=== PATIENT | female | born 1945 | race Caucasian/White ===

== ENCOUNTER → 2019-03-24 | Outpatient (CLI) | payer MEDICARE, OTHER ==
--- NOTE | 2019-03-25 11:17 | RADIOLOGY REPORT (SQ) ---
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 RADIONUCLIDE AND DOSE: 13 mCi mCi F18 FDG The route of agent administration: Intravenous FASTING BLOOD SUGAR: 105 mg/dl CONTRAST TYPE AND DOSE: No CT contrast given. TECHNIQUE: Blood glucose level was verified. Above dose of FDG was injected intravenously. 2-D seg mented attenuation correction images were obtained from the base of the skull to the midthighs. Nonc ontrast CT images were obtained for attenuation correction and fusion with emission images. CT image s were performed without oral or intravenous contrast and are not sensitive for parenchymal lesions. A series of overlapping emission PET images were obtained. Images reviewed and manipulated at [facility] work station by the radiologist. Images stored on PACS. LIMITATIONS: None. FINDINGS: HEAD AND NECK: No areas of abnormal metabolic activity in the soft tissues of the head and neck. CHEST: No areas of abnormal metabolic activity in the chest. ABDOMEN AND PELVIS: There is increased activity along the perineum, with SUV of 16. 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 No metabolically active adenopathy along the pelvis or inguinal regions. No retroperitoneal adenopat hy. PROXIMAL LOWER EXTREMITIES: No areas of abnormal metabolic activity in the soft tissues of the lower extremities. BONES: No abnormal metabolic activity in the visualized skeleton. ADDITIONAL CT FINDINGS: Air-fluid level right maxillary sinus from inflammatory change. Post hystere ctomy and oophorectomy, thyroidectomy, and right total hip replacement OTHER: No other significant findings. IMPRESSION: Increased activity along the perineum correlating with history of squamous cell carcinom a. No malignant adenopathy or PET-CT evidence of distant metastatic disease TECHNICAL DOCUMENTATION: JOB ID: [id number] [employer]- All Rights Reserved Reading location - IP/workstation name: [email or web address]
== END ==
LOC: RAD 17:16
PROVIDERS: ATTEND Radiology Radiation Oncology
DX: C21.1 Malignant neoplasm of anal canal (principal)
CPT/HCPCS: 78815; A9552

== ENCOUNTER 2019-03-26 07:06 | Day surgery (SDC) | payer MEDICARE, OTHER ==
[~2019-03-26 07:06] MED LIST: 1/2 NORMAL SALINE 1,000 ML IV PRN; CEFAZOLIN 1 GM/D5W RTU 1 GM/50 ML RTUPB IV PRN
[2019-03-26] MEDS ORDERED: CEFAZOLIN 1 GM/D5W RTU 1 GM/50 ML RTUPB IV ONE (07:08)
[2019-03-26 08:04] LABS: ABSOLUTE BASOPHILS # (AUTO) 0.1 10^3/uL (0.0-0.2); ABSOLUTE EOSINOPHILS # (AUTO) 0.3 10^3/uL (0.0-0.6); ABSOLUTE MONOCYTES (AUTO) 0.7 10^3/uL (0.1-1.4); ABSOLUTE NEUT (AUTO) 4.2 10^3/uL (1.7-8.2); BASOPHILS % (AUTO) 1.2 % (0-2); EOSINOPHILS % (AUTO) 3.4 % (0-6); HEMATOCRIT 42.1 % (36.0-47.0); HEMOGLOBIN 14.1 g/dL (12.0-15.5); LYMPHOCYTES % (AUTO) 27.6 % (13-45); MEAN CORPUSCULAR HGB CONC 33.6 g/dL (32.0-36.0); MEAN CORPUSCULAR VOLUME 89 fl (80-97); PLATELET COUNT 253 10^3/uL (150-450); RED BLOOD COUNT 4.71 10^6/uL (3.72-5.28); RED CELL DISTRIBUTION WIDTH 13.2 % (11.5-14.0); SEGMENTED NEUTROPHILS % (AUTO) 57.8 % (42-78); TOTAL CELLS COUNTED % (AUTO) 100 %; WHITE BLOOD COUNT 7.3 10^3/uL (4.0-10.5)
--- NOTE | 2019-03-26 08:15 | RADIOLOGY REPORT (SQ) ---
EXAM DESCRIPTION: CHEST SINGLE VIEW COMPLETED DATE/TIME: 03/26/2019 7:44 am REASON FOR STUDY: PRE OP COMPARISON: PET-CT 03/24/2019 EXAM PARAMETERS: NUMBER OF VIEWS: One view. TECHNIQUE: Single frontal radiographic view of the chest acquired. RADIATION DOSE: NA LIMITATIONS: None. FINDINGS: LUNGS AND PLEURA: No opacities, masses or pneumothorax. No pleural effusion. MEDIASTINUM AND HILAR STRUCTURES: No masses. Contour normal. HEART AND VASCULAR STRUCTURES: Heart normal in size. Normal vasculature. BONES: No acute findings. HARDWARE: None in the chest. OTHER: No other significant finding. IMPRESSION: NO ACUTE RADIOGRAPHIC FINDING IN THE CHEST. TECHNICAL DOCUMENTATION: JOB ID: [id number] [employer]- All Rights Reserved Reading location - IP/workstation name: [email or web address]
[2019-03-26 08:25] LABS: ANION GAP 13 (5-19); BLOOD UREA NITROGEN 23 mg/dL (7-20); CALCIUM 9.6 mg/dL (8.4-10.2); CARBON DIOXIDE 23 mmol/L (22-30); CHLORIDE 105 mmol/L (98-107); GLUCOSE 125 mg/dL (75-110); SODIUM 140.6 mmol/L (137-145)
[2019-03-26] MEDS ORDERED: FENTANYL CITRATE INJ/PF 100 MCG/2 ML AMPUL ONE (09:05)
[2019-03-26] MEDS ORDERED: MIDAZOLAM 2 MG/2 ML INJ ONE (09:05)
[2019-03-26] MEDS ORDERED: PROPOFOL INJ 200 MG/20 ML VIAL IV ONE (09:06)
[2019-03-26] MEDS ORDERED: ONDANSETRON HCL INJ/PF 4 MG/2 ML SDV ONE (09:06)
[2019-03-26] MEDS ORDERED: BACITRACIN INJ 50,000 UNIT VIAL ONE (09:08)
[2019-03-26] MEDS ORDERED: LIDOCAINE 0.5% INJ-PF (5 MG/ML) 50 ML SDV ONE (09:08)
[2019-03-26] MEDS ORDERED: BUPIVACAINE HCL 0.25 % INJ/PF (2.5 MG/1 ML) 30 ML VIAL ONE (09:08)
[2019-03-26] MEDS ORDERED: FENTANYL CITRATE INJ/PF 100 MCG/2 ML AMPUL IV PRN ×3 (09:42)
--- NOTE | 2019-03-26 10:31 | Discharge Summary ---
Discharge Summary (SDC) - Discharge Final Diagnosis: #1 anal cancer. #2 hypertension. Date of Surgery: 03/26/19 Discharge Date: 03/26/19 Condition: Fair Treatment or Instructions: Discharge home [after recovery per ASU criteria]. Diet , [renal],as tolerated, when fully awake advance as tolerated. Activities within moderation encouraged. Follow up in my office by appointment in about [1 week]. Call for appointment. Leave wounds [covered], [keep clean and dry, until office visit in 1 week]. Hold of on school/work [until evaluation in office]. Meds per med rec. Percocet. Chest x-ray in recovery room. May shower [in 48 hrs], [try to keep operated area as dry as possible]. Prescriptions: Oxycodone HCl/Acetaminophen [Percocet 5-325 mg Tablet] 1 tab PO ASDIR PRN #15 tab PRN Reason: Referrals: HALEY CUNHA MD [Primary Care Provider] - ROSE BREWER MD [ACTIVE STAFF] - 04/04/19 8:00 am Discharge Diet: As Tolerated Respiratory Treatments at Home: Deep Breathing/Coughing Discharge Activity: Activity As Tolerated Report the Following to Your Physician Immediately: Shortness of Breath, Unusual Bleeding
--- NOTE | 2019-03-26 10:33 | Operative Report ---
Operative Report DATE OF SURGERY: 03/26/19 PREOPERATIVE DIAGNOSIS: #1 anal cancer. #2 hypertension. POSTOPERATIVE DIAGNOSIS: #1 anal cancer. #2 hypertension. OPERATION: 1. Ultrasound evaluation of the right internal jugular vein. 2. Insertion of Port-A-Cath via real-time access in the right internal jugular vein. 3. Angiogram and interpretation. SURGEON: ROSE KENNY POLITICAL AIDE: None. ANESTHESIA: LMAC TISSUE REMOVED OR ALTERED: Not applicable. COMPLICATIONS: None. ESTIMATED BLOOD LOSS: 5 mL. INTRAOPERATIVE FINDINGS: Of a satisfactory right internal jugular vein, estimated 2 cm in diameter. Adequate for access. Good position of the catheter with the tip just down in the right atrium. Easy egress of blood and ingress of heparinized solution. Satisfactory flow of contrast through the right atrium and ventricle. Postprocedure chest x-ray showed no untoward finding. PROCEDURE: After obtaining informed consent, the patient was taken to the [operating room] and positioned supine. The [right] neck and chest were prepared with chlorhexidine and draped out with sterile linen. After the " universal timeout", in which it was verified that the patient continued to receive antibiotic, the procedure commenced. A steriley sheathed ultrasound probe was used to evaluate the [right] internal jugular vein. Local anesthesia was infiltrated adjacent to the probe. Access into the [right] internal jugular vein was obtained using a micropuncture needle, followed by micropuncture wire and then a micropuncture catheter. This was followed by introduction of a 0.035 guidewire the tip of which was placed down into the inferior vena cava . The port sites was marked , locally anesthetized and incision made. Dissection now proceeded to the deep subcutaneous subcutaneous tissues so that a pocket for the port was made. Meticulous hemostasis was secured and the catheter was tunneled between the 2 incisions. Proximally, the catheter was now positioned using a peel-away sheath. Distally the catheter was tailored to an appropriate length a nd then mated to the port using the contained fixating device. The port was now placed in the pocket and the catheter optimally positioned. The port was accessed with a Clark needle and an angiogram done under digital subtraction. The findings as dictated. With adequate and satisfactory positioning, the lumen of the chamber were irrigated with heparinized solution. The wounds were now closed using interrupted 3-0 PDS to the subcutaneous tissues and a continuous subcuticular suture of 4-0 Monocryl to the skin. These are reinforced with Steri-Strips over benzoin and then dressings applied. Time: 1.4 minute. Dose: 14.3 m Gy Contrast: Supple 4.3 Mls. Isovue 300. Copies of the dictated operative report for Dr. Rose Alfred MD.
--- NOTE | 2019-03-26 11:21 | EKG REPORT ---
SEVERITY:- NORMAL ECG - SINUS RHYTHM : Confirmed by: Yuly Lamb MD 26-Mar-2019 11:21:35
[2019-03-26 12:35] VITALS: BP 123/83
--- NOTE | 2019-03-26 12:38 | RADIOLOGY REPORT (SQ) ---
EXAM DESCRIPTION: CHEST SINGLE VIEW COMPLETED DATE/TIME: 03/26/2019 11:55 am REASON FOR STUDY: post op pacu COMPARISON: AP chest 03/26/2019, 741 hours EXAM PARAMETERS: NUMBER OF VIEWS: One view. TECHNIQUE: Single frontal radiographic view of the chest acquired. RADIATION DOSE: NA LIMITATIONS: Film is overpenetrated FINDINGS: LUNGS AND PLEURA: No gross pneumothorax post right central line placement No focal infiltrates. No pleural effusion. MEDIASTINUM AND HILAR STRUCTURES: No masses. Contour normal. HEART AND VASCULAR STRUCTURES: Stable mild cardiomegaly BONES: No acute findings. HARDWARE: Right-sided permanent central line tip superior vena cava OTHER: No other significant finding. IMPRESSION: Overpenetrated film. No gross pneumothorax post right-sided permanent central line plac ement TECHNICAL DOCUMENTATION: JOB ID: [id number] [employer]- All Rights Reserved Reading location - IP/workstation name: [email or web address]
--- NOTE | 2019-03-26 16:55 | RADIOLOGY REPORT (SQ) ---
EXAM DESCRIPTION: FLUORO/CV PLACEMENT COMPLETED DATE/TIME: 03/26/2019 2:30 pm REASON FOR STUDY: PORTACATH PLCMT RT SIDE ASST WITH FLUORO IN OR C21.0 MALIGNANT NEOPLASM OF ANUS, UNSPECIFIED COMPARISON: AP chest 03/26/2019 FLUOROSCOPY TIME: 1.4 minutes 4 digital C-arm images saved to PACS. TECHNIQUE: Intra-operative images acquired during surgical procedure to evaluate progress. NUMBER OF IMAGES: 4 digital C-arm images LIMITATIONS: None. FINDINGS: Intra procedural imaging and fluoro during right-sided permanent central line placement wi th the tip in the superior vena cava IMPRESSION: IMAGE(S) OBTAINED DURING PROCEDURE. COMMENT: Quality ID [id number]: Final reports for procedures using fluoroscopy that document radiation exp osure indices, or exposure time and number of fluorographic images (if radiation exposure indices are not available) Please consult full operative report of the attending physician for description of the procedure. TECHNICAL DOCUMENTATION: JOB ID: [id number] [employer]- All Rights Reserved Reading location - IP/workstation name: [email or web address]
== END 2019-03-26 12:15 | disposition home or self-care (01) ==
LOC: OROUT 07:06
PROVIDERS: ATTEND Surgery
DX: C21.0 Malignant neoplasm of anus, unspecified (principal); I10 Essential (primary) hypertension; E89.0 Postprocedural hypothyroidism; E78.00 Pure hypercholesterolemia, unspecified; Z85.828 Personal history of other malignant neoplasm of skin; Z79.899 Other long term (current) drug therapy
CPT/HCPCS: 36415; 85025; 80048; 71045; 77001; 93005; 93010; 36561; C1752; C1788; Q9967; J2250; J3490 ×2; J0690; J3010; J2405; J2704; J1642; 532

== ENCOUNTER 2019-07-25 09:13 | Day surgery (SDC) | payer MEDICARE, OTHER ==
--- NOTE | 2019-07-19 18:05 | EKG REPORT ---
SEVERITY:- ABNORMAL ECG - SINUS RHYTHM EARLY PRECORDIAL TRANSITION, CONSIDER OLD TRUE POST. MT : Confirmed by: Chinmay Ramachandran MD 19-Jul-2019 18:04:50
[~2019-07-25 09:13] MED LIST changes: -1/2 NORMAL SALINE 1,000 ML IV PRN; -CEFAZOLIN 1 GM/D5W RTU 1 GM/50 ML RTUPB IV PRN; +LACTATED RINGERS 1000 ML IV PRN; +LIDOCAINE 0.5% INJ-PF (5 MG/ML) 50 ML SDV SUBCUT PRN
[2019-07-25] MEDS ORDERED: PROPOFOL INJ 200 MG/20 ML VIAL IV ONE (09:19)
[2019-07-25] MEDS ORDERED: ONDANSETRON HCL INJ/PF 4 MG/2 ML SDV IV PRN (11:47)
[2019-07-25] MEDS ORDERED: FENTANYL CITRATE INJ/PF 100 MCG/2 ML AMPUL ONE (12:18)
[2019-07-25] MEDS ORDERED: ONDANSETRON HCL INJ/PF 4 MG/2 ML SDV ONE (12:19)
--- NOTE | 2019-07-25 13:24 | Operative Report ---
Nonrecallable Operative Report DATE OF SURGERY: 07/25/19 PREOPERATIVE DIAGNOSIS: hx of rectal cancer POSTOPERATIVE DIAGNOSIS: hx of rectal cancer OPERATION: colonoscopy and biopsy SURGEON: DUTCH CONROY ANESTHESIA: LMAC TISSUE REMOVED OR ALTERED: cecal bx and rectal bx x 2 COMPLICATIONS: none ESTIMATED BLOOD LOSS: 0 INTRAOPERATIVE FINDINGS: see dictation PROCEDURE: The patient was brought to the operating room awake and alert in stable condition placed in the upper table supine position she was given IV sedation and placed in the left lateral decubitus position maintained with the moderate sedation throughout the procedure. After appropriate timeout site verification procedure commenced. Olympus colonoscope was passed into the rectum after digital examination revealed no palpable masses the rectum was traversed to the sigmoid colon the descending colon splenic flexure transverse colon hepatic flexure and cecum we able to reach to the cecum fairly easily. There is a small smooth swelling on the entrance to the cecum that appeared to be a submucosal lipoma but this was biopsied. As we slowly withdrew the scope we examined the ascending colon hepatic flexure transverse colon splenic flexure and descending colon all appeared to be normal without any evidence of mucosal abnormalities slowly withdrawing the scope past the sigmoid colon into the rectum there were number of fairly small excrescences on the mucosa of the rectum on the posterior aspect of it which were biopsied x2. Scope was then removed which completed the procedure estimated blood loss was negligible sponge needle counts were correct x2 the patient was awakened in the operating room transferred recovery in stable condition no complications. Colonoscopy dependent on current pathology which is pending
--- NOTE | 2019-07-25 13:26 | Discharge Summary ---
Discharge Summary (SDC) - Discharge Final Diagnosis: History of rectal cancer Date of Surgery: 07/25/19 Discharge Date: 07/25/19 Condition: Good Referrals: HALEY CUNHA MD [Primary Care Provider] - Discharge Diet: As Tolerated Discharge Activity: Activity As Tolerated Report the Following to Your Physician Immediately: Nausea, Vomiting, Increase in Pain
[2019-07-25 15:25] VITALS: BP 148/68
== END 2019-07-25 14:45 | disposition home or self-care (01) ==
LOC: OROUT 09:13
PROVIDERS: ATTEND Surgery
DX: Z12.11 Encounter for screening for malignant neoplasm of colon (principal); D12.0 Benign neoplasm of cecum; Z85.038 Personal history of other malignant neoplasm of large intestine; E78.00 Pure hypercholesterolemia, unspecified; Z85.828 Personal history of other malignant neoplasm of skin; I10 Essential (primary) hypertension; Z79.899 Other long term (current) drug therapy; E89.0 Postprocedural hypothyroidism
CPT/HCPCS: 93005; 36415; 84132; 88305 ×2; 93010; 00811; 45380; J3010; J2405; J2704; 811

== ENCOUNTER → 2019-08-04 | Outpatient (CLI) | payer MEDICARE, OTHER ==
--- NOTE | 2019-08-05 08:24 | RADIOLOGY REPORT (SQ) ---
EXAM DESCRIPTION: PET CT SKULL/THIGH COMPLETED DATE/TIME: 08/05/2019 12:54 am REASON FOR STUDY: (C21.0)MALIGNANT NEOPLASM OF ANUS, UNSPECIFIED C21.0 MALIGNANT NEOPLASM OF ANUS, UNSPECIFIED COMPARISON: PET-CT 03/24/2019 RADIONUCLIDE AND DOSE: 11 mCi F18 FDG The route of agent administration: Intravenous FASTING BLOOD SUGAR: 98 mg/dl CONTRAST TYPE AND DOSE: No CT contrast given. TECHNIQUE: Blood glucose level was verified. Above dose of FDG was injected intravenously. 2-D seg mented attenuation correction images were obtained from the base of the skull to the midthighs. Nonc ontrast CT images were obtained for attenuation correction and fusion with emission images. CT image s were performed without oral or intravenous contrast and are not sensitive for parenchymal lesions. A series of overlapping emission PET images were obtained. Images reviewed and manipulated at [facility] work station by the radiologist. Images stored on PACS. LIMITATIONS: None. FINDINGS: HEAD AND NECK: No areas of abnormal metabolic activity in the soft tissues of the head and neck. Surgical clips post thyroidectomy. CHEST: No areas of abnormal metabolic activity in the chest. ABDOMEN AND PELVIS: No areas of abnormal metabolic activity in the abdomen or pelvis. Expected physi ologic activity is present in the genitourinary system and bowel. There is no abnormal increased uptake over the perineum/anus/vagina region. PROXIMAL LOWER EXTREMITIES: No areas of abnormal metabolic activity in the soft tissues of the lower extremities. BONES: No abnormal metabolic activity in the visualized skeleton. ADDITIONAL CT FINDINGS: Right-sided permanent central line tip superior vena cava. Post thyroidectom y. Chronic increased interstitial markings periphery with lung base, stable. Hiatal hernia. Degene rative changes lumbar spine. Post total abdominal hysterectomy and bilateral salpingo-oophorectomy. Right total hip replacement. OTHER: No other significant findings. IMPRESSION: No abnormal PET-CT activity worrisome for residual or recurrent disease TECHNICAL DOCUMENTATION: JOB ID: [id number]- All Rights Reserved Reading location - IP/workstation name: [email or web address]
== END ==
LOC: RAD 14:35
PROVIDERS: ATTEND Internal Medicine Hematology & Oncology
DX: C21.0 Malignant neoplasm of anus, unspecified (principal)
CPT/HCPCS: 78815; A9552

== ENCOUNTER → 2020-07-30 | Outpatient (CLI) | payer MEDICARE, OTHER ==
--- NOTE | 2020-07-30 13:03 | RADIOLOGY REPORT (SQ) ---
EXAM DESCRIPTION: CT ABD/PELVIS WITH IV ONLY IMAGES COMPLETED DATE/TIME: 07/30/2020 8:54 am REASON FOR STUDY: C21.0 MALIGNANT NEOPLASM OF ANUS, UNSPECIFIED C21.0 MALIGNANT NEOPLASM OF ANUS, U NSPECIFIED COMPARISON: PET-CT 08/04/2019 TECHNIQUE: CT scan of the abdomen and pelvis performed using helical scanning technique with dynamic intravenous contrast injection. No oral contrast. Images reviewed with lung, soft tissue, and bone windows. Reconstructed coronal and sagittal MPR images reviewed. Delayed images for evaluation of the urinary system also acquired. All images stored on PACS. All CT scanners at this facility use dose modulation, iterative reconstruction, and/or weight based d osing when appropriate to reduce radiation dose to as low as reasonably achievable (ALARA). [facility]: Dose Right [facility]: CareDose [facility]: Dose Right [facility]: Teradose 4D [facility]: [employer] CONTRAST TYPE AND DOSE: contrast/concentration: Isovue 350.00 mmol/ml; Total Contrast Delivered: 100 .0 ml; Total Saline Delivered: 48.1 ml RENAL FUNCTION: GFR > 60. RADIATION DOSE: . LIMITATIONS: Artifact from right hip arthroplasty. FINDINGS: LOWER CHEST: See separate report of the CT of the chest. LIVER: Normal size. No masses. No dilated ducts. SPLEEN: Normal size. No focal lesions. PANCREAS: No masses. No significant calcifications. No adjacent inflammation or peripancreatic fluid collections. Pancreatic duct not dilated. GALLBLADDER: Gallstones. No inflammatory changes to suggest cholecystitis. ADRENAL GLANDS: No significant masses or asymmetry. RIGHT KIDNEY AND URETER: No solid masses. No significant calcifications. No hydronephrosis or hyd roureter. LEFT KIDNEY AND URETER: No solid masses. No significant calcifications. No hydronephrosis or hydr oureter. AORTA AND VESSELS: No aneurysm. RETROPERITONEUM: No retroperitoneal adenopathy, hemorrhage or masses. BOWEL AND PERITONEAL CAVITY: No masses or inflammatory changes. No free fluid or peritoneal masses. APPENDIX: Not visualized. PELVIS: No mass. No free fluid. Normal bladder. ABDOMINAL WALL: Small fat containing anterior abdominal wall hernias. BONES: Nothing acute. OTHER: No other significant finding. IMPRESSION: No evidence of local recurrence or metastatic disease. TECHNICAL DOCUMENTATION: JOB ID: [id number] Quality ID # [id number]: Final reports with documentation of one or more dose reduction techniques (e.g., Au tomated exposure control, adjustment of the mA and/or kV according to patient size, use of iterative reconstruction technique) 2010 [employer] All Rights Reserved Reading location - IP/workstation name: [email or web address]
--- NOTE | 2020-07-30 13:10 | RADIOLOGY REPORT (SQ) ---
EXAM DESCRIPTION: CT CHEST WITH IMAGES COMPLETED DATE/TIME: 07/30/2020 8:54 am REASON FOR STUDY: C21.0 MALIGNANT NEOPLASM OF ANUS, UNSPECIFIED C21.0 MALIGNANT NEOPLASM OF ANUS, U NSPECIFIED COMPARISON: PET-CT 08/04/2019. TECHNIQUE: CT scan of the chest performed using helical scanning technique with dynamic intravenous contrast injection. Images reviewed with lung, soft tissue and bone windows. Reconstructed coronal and sagittal MPR and MIP images reviewed. All images stored on PACS. All CT scanners at this facility use dose modulation, iterative reconstruction, and/or weight based d osing when appropriate to reduce radiation dose to as low as reasonably achievable (ALARA). [facility]: Dose Right [facility]: CareDose [facility]: Dose Right [facility]: Teradose 4D [facility]: [employer] RENAL FUNCTION: GFR > 60. RADIATION DOSE: CT Rad equipment meets quality standard of care and radiation dose reduction techniq ues were employed. CTDIvol: 11.8 - 22.3 mGy. DLP: 2892 mGy-cm. . LIMITATIONS: None. FINDINGS: LUNGS AND PLEURA: There are a few stable less than 6 mm pulmonary nodules. Image 54 right upper lobe and middle lobe. Image 81 left lower lobe. No new or suspicious nodules. HILAR AND MEDIASTINAL STRUCTURES: No identified masses or abnormal nodes. HEART AND VASCULAR STRUCTURES: No aneurysm or dissection. No central pulmonary emboli. No pericardi al effusion. HARDWARE: None in the chest. UPPER ABDOMEN: See separate report of the CT of the abdomen. THYROID AND OTHER SOFT TISSUES: Prior thyroidectomy. BONES: No significant finding. OTHER: No other significant finding. IMPRESSION: No evidence of metastatic disease. TECHNICAL DOCUMENTATION: JOB ID: [id number] Quality ID # [id number]: Final reports with documentation of one or more dose reduction techniques (e.g., Au tomated exposure control, adjustment of the mA and/or kV according to patient size, use of iterative reconstruction technique) 2010 [employer]- All Rights Reserved Reading location - IP/workstation name: [email or web address]
--- OUTSIDE RECORDS SUMMARY | 2020-07-31 15:04 | XMS REPORT ---
:1945 Author Organization [facility] [place] [facility] [place] [address] [place] [address] Care Team Providers Name Role Phone Fernando Baumann Primary Care Physician Unavailable Bárbara Weeks M.D. Attending Clinician Unavailable Fernando Baumann Attending Clinician Unavailable Fernando Baumann Attending Clinician Unavailable ZA SHEPHERD Attending Clinician Unavailable JOANIE Attending Clinician Unavailable MEGHNA WASHBURN Attending Clinician Unavailable DENIS TAN Attending Clinician Unavailable BLOSSOM MENDIETA Attending Clinician Unavailable KAIA ARCINIEGA Attending Clinician Unavailable TIMMY SHEPHERD Admitting Clinician Unavailable JOANIE Admitting Clinician Unavailable KAIA ARCINIEGA Admitting Clinician Unavailable Allergies, Adverse Reactions, Alerts Allergy Allergy Status Severity Reaction(s) Onset Inactive Treating Hector mario Name Type Date Date Clinician KEVIN SIERRA Active Medications Ordered Filled Start Stop Current Ordering Indication Dosage Frequency Signature Comments Components Medication Medication Date Date Medication? Clinician (SIG) Name Name K-Tab 2018-0 2020- No 8-13 10-29 00:00: 09:23 00 :14 Dexamethaso 2018-0 No 10mg Dexamethas ne Sodium 8-12 one Sodium Phosphate 00:00: Phosphate 00 Sodium 0 No 60mL Sodium Chloride 8-12 Chloride 00:00: 00 Fluorouraci No 8480mg Fluorourac l 8-12 il 00:00: 00 Ondansetron 2018- 2020- No 1 HCl 04-01 00:00: 09:23 00 :14 Promethazin 2018- 2020- No 1 e HCl 04-01 00:00: 09:23 00 :14 Dexamethaso 2018-0 2019- No 10mg Dexamethas ne Sodium 715 08-12 one Sodium Phosphate 00:00: 00:00 Phosphate 00 :00 Fluorouraci 2018- 2019- No 8600mg Fluorourac l 04-01 il 00:00: 00:00 00 :00 Mitomycin 2018- 2019- No 21mg 04-01 00:00: 00:00 00 :00 Sodium 2018-0 2019- No 50mL Sodium Chloride 04-01 Chloride 00:00: 00:00 00 :00 SIMVASTATIN 2018- Yes 40mg Take 40 mg Ta ke 40 ORAL 2-26 by mouth mg by 13:20: every mouth 00 evening. every evening. CHOLECALCIF 2018- Yes 400U Take 400 Take 400 MARIZA, 2-26 Units by Units by VITAMIN D3, 13:20: mouth mouth (VITAMIN D3 00 every every ORAL) morning. morning. Last dose Last dose 05/25/16 05/25/16 ascorbic 2018- Yes 500mg Take 500 Take 50 0 acid, 2-26 mg by mg by vitamin C, 13:20: mouth Two mout h Two (ASCORBIC 00 (2) times (2) ti mes ACID WITH a day. a day. YOU HIPS) 500 MG tablet b complex Yes 1{capsu Take 1 Take 1 vitamins 2-26 le} capsule by capsul e capsule 13:20: mouth by mouth 00 daily. daily. levothyroxi Yes 112ug Take 112 Take 112 ne 2-26 mcg by mcg by (SYNTHROID) 13:20: mouth mouth 112 MCG 00 daily at daily at tablet 0600. 0600. felodipine 2017-09 Yes 10mg Take 10 mg Ryan e 10 (PLENDIL) 0-10 by mouth mg by 10 MG 24 hr 08:52: daily. mouth tablet 09 daily. levothyroxi 2017-09 No 112ug Take 112 Take 112 ne 0-10 mcg by mcg by (SYNTHROID) 08:52: mouth mouth 112 MCG 09 daily at daily at tablet 0600. 0600. docusate No 100MG Take 100 Take 10 0 sodium 9-18 mg by mg by (COLACE) 15:11: mouth Two mouth Two 100 MG 28 (2) times (2) times capsule a day. a day. acetaminoph 2018- No 500MG Take 500 Take 500 en 9-06 09-06 mg by mg by (TYLENOL) 15:18: 00:00 mouth mouth 500 MG 08 :00 every four every tablet (4) hours four (4) as needed hours as for pain. needed for pain. b complex No 1{capsu Take 1 Take 1 vitamins 05-24 le} capsule by capsul e capsule 12:09: mouth by mouth 50 daily. daily. acetaminoph No 500MG Take 1 Take 1 en 05-24 tablet tablet (TYLENOL) 00:00: (500 mg (500 mg 500 MG 00 total) by total) by tablet mouth mouth Every six Every six (6) hours. (6) hours. acetaminoph Yes 500mg Take 1 Take 1 en 05-24 tablet tablet (TYLENOL) 00:00: (500 mg (500 mg 500 MG 00 total) by total) by tablet mouth mouth Every six Every six (6) hours. (6) hours. oxyCODONE 2017- No 5MG Take 1-2 Take 1 -2 (ROXICODONE 05-24 tablets tablet s ) 5 MG 00:00: 23:59 (5-10 mg (5-10 mg immediate 00 :00 total) by total) by release mouth mouth tablet every six every six (6) hours (6) hours as needed as needed for pain. for pain. for up to for up to 5 days 5 days diazePAM 2017- No 2MG Take 1 Take 1 (VALIUM) 2 05-24 tablet (2 table t (2 MG tablet 00:00: 23:59 mg total) mg to maddy) 00 :00 by mouth by mouth every every eight (8) eight (8) hours as hours as needed for needed muscle for spasms. muscle for up to spasms. 5 days for up to 5 days ferrous 0 Yes 325mg Take 325 Take 325 sulfate 325 8-31 mg by mg by (65 FE) MG 11:54: mouth Two mout h Two tablet 18 (2) times (2) times a day. a day. polyethylen 0 Yes 17g Take 17 g Ryan e 17 g e glycol 8-31 by mouth by mouth (MIRALAX) 11:54: every every 17 gram 18 morning. morning. packet ascorbic No 500MG Take 500 Take 50 0 acid, 8-31 mg by mg by vitamin C, 11:54: mouth Two mout h Two (ASCORBIC 17 (2) times (2) ti mes ACID WITH a day. a day. YOU HIPS) 500 MG tablet Simvastatin Simvastatin Yes UNKNOWN, 40table 1 (one) 40 MG Oral 40 MG Oral 8-08 [place] t Tablet Tablet Tablet 00:00: [place] daily 00 Sulfamethox Sulfamethox Yes UNKNOWN, 1 po bid azole-Trime azole-Trime 2-15 [place] x 5 days thoprim thoprim 00:00: [place] 800-160 MG 800-160 MG 00 Oral Tabl Oral Tabl Losartan Losartan Yes UNKNOWN, 1 po Potassium-H Potassium-H 8-04 [place] daily CTZ 100-25 CTZ 100-25 00:00: [place] MG Oral MG Oral 00 Tablet Tablet Felodipine Felodipine Yes UNKNOWN, 10 1 by ER 10 MG ER 10 MG 8-04 [place] mouth Oral Tablet Oral Tablet 00:00: Brandy daily Extended Extended 00 Release 2 Release 2 levothyroxi No 112ug Take 112 Take 112 ne 3-30 mcg by mcg by (SYNTHROID, 00:00: mouth mouth LEVOTHROID) 00 every every 100 MCG morning. morning. tablet levothyroxi levothyroxi 2015-09 UNKNOWN, 125mcg ne 125 mcg ne 125 mcg 09-18 System tablet tablet 00:00: 00:00 [employer] 00 :00 CHOLECALCIF No 400U Take 400 Take 400 MARIZA, 08 Units by Units by VITAMIN D3, 14:29: mouth mouth (VITAMIN D3 02 every every ORAL) morning. morning. Last dose Last dose 05/25/16 05/25/16 VITAMIN B No 1mL Place 1 mL Plac e 1 COMPLEX-VIT 05-26 under the mL u nder B12 SL 14:29: tongue the 02 every tongue morning. every Last dose morning. was 05/25/16 Last dose was 05/25/16 dextrose 5 No 75mL/h Potassium % and 8-25 Chloride sodium 12:00: 20 Meq/L chloride 00 In 0.45 % with Dextrose 5 KCl 20 %-0.45 % mEq/L Sodium infusion Chloride IV acetaminoph No 975MG Acetaminop en 8-25 hen 325 Mg (TYLENOL) 11:27: Tablet tablet 975 36 mg metoclopram No 10MG Metoclopra mame 8-25 mide 5 (REGLAN) 11:27: Mg/Ml injection 36 Injection 10 mg Solution metoclopram No 10MG Metoclopra mame 8-25 mide 5 (REGLAN) 11:27: Mg/Ml injection 36 Injection 10 mg Solution ondansetron No 4MG Ondansetro (ZOFRAN) 8-25 n Hcl (Pf) injection 4 11:27: 4 Mg/2 Ml mg 36 Injection Solution promethazin No 25MG Promethazi e 05-12 ne 25 (PHENERGAN) 11:27: Mg/Ml injection 36 Injection 25 mg Solution oxyCODONE No 5MG Oxycodone (ROXICODONE 05-12 5 Mg ) immediate 11:27: 23:59 Tablet release 36 :00 tablet 5 mg oxyCODONE-a 2015- No 1{tbl} Oxycodone- cetaminophe 05-12 Acetaminop n 11:27: 23:59 hen 5 (PERCOCET) 36 :00 Mg-325 Mg 5-325 mg Tablet tablet 1 tablet HYDROmorpho No .2MG Hydromorph ne (PF) 05-12 one 1 (DILAUDID) 11:27: Mg/Ml injection 35 Injection 0.2 mg Syringe meperidine No 12.5MG Meperidine (DEMEROL) 05-12 (Pf) 25 25 mg/mL 11:27: Mg/Ml injection 35 Injection 12.5 mg Syringe MORPhine No 2MG Morphine injection 2 05-12 10 Mg/Ml mg 11:27: Inj 35 Combined ondansetron No 4MG Ondansetro (ZOFRAN) 825 n Hcl (Pf) injection 4 11:27: 4 Mg/2 Ml mg 35 Injection Solution phenol No 2{spray Q2H Phenol 1.4 (CHLORASEPT 8-25 } % Mucosal IC) 1.4 % 11:14: Aerosol spray 2 21 [place] spray menthol No 1{lozen Q2H Menthol (COUGH 8-25 ge} Lozenges DROPS) 11:14: lozenge 1 13 lozenge diphenhydrA No 12.5MG Q4H Diphenhydr MINE 05-12 amine 50 (BENADRYL) 11:14: Mg injection 10 Vial/Syrin 12.5 mg ge ondansetron No 4MG Q6H Ondansetro (ZOFRAN) 825 n Hcl (Pf) injection 4 11:12: 4 Mg/2 Ml mg 55 Injection Solution ondansetron No 4MG Q6H Ondansetro (ZOFRAN-ODT 05-12 n 4 Mg ) 11:12: Disintegra disintegrat 55 ting ing tablet Tablet 4 mg promethazin No 6.25MG Q6H Promethazi e 8-25 ne 25 (PHENERGAN) 11:12: Mg/Ml injection 55 Injection 6.25 mg Solution promethazin No 6.25MG Q6H Promethazi e 825 ne 25 (PHENERGAN) 11:12: Mg/Ml injection 55 Injection 6.25 mg Solution acetaminoph No 650MG Q4H Acetaminop en 05-12 hen 325 Mg (TYLENOL) 11:12: Tablet tablet 650 54 mg ibuprofen No 600MG Q6H Ibuprofen (ADVIL,MOTR 05-12 200 Mg IN) tablet 11:12: Tablet 600 mg 54 HYDROcodone 2015- No 1{tbl} Q4H Hydrocodon -acetaminop 05-12 09-08 e 5 hen (NORCO) 11:12: 11:11 Mg-Acetami 5-325 mg 54 :54 nophen 325 per tablet Mg Tablet 1 tablet HYDROcodone 2015- No 2{tbl} Q4H Hydrocodon -acetaminop 05-12 09-08 e 5 hen (NORCO) 11:12: 11:11 Mg-Acetami 5-325 mg 54 :54 nophen 325 per tablet Mg Tablet 2 tablet midazolam No 1MG Midazolam (VERSED) 05-12 1 Mg/Ml injection 1 07:06: Injection mg 55 Solution fentaNYL 2015- No 50ug Fentanyl (PF) 8 08-25 (Pf) 50 (SUBLIMAZE) 07:06: 19:05 McG/Ml injection 55 :55 Injection 50 mcg Solution lactated No 20mL/h Lactated ringers 8-25 Ringers infusion 06:00: Intravenou 00 s Solution HYDROcodone 2016- No 1{tbl} Q4H Take 1-2 Ryan e 1-2 -acetaminop -05-19 tablets by tab lets hen (NORCO) 00:00: 23:59 mouth by mout h 5-325 mg 00 :00 every four every per tablet (4) hours four (4) as needed hours as for pain. needed for up to for pain. 7 days for up to 7 days HYDROcodone 2016- No 1{tbl} Q4H Take 1-2 Ryan e 1-2 -acetaminop 05-12 tablets by tab lets hen (NORCO) 00:00: 23:59 mouth by mout h 5-325 mg 00 :00 every four every per tablet (4) hours four (4) as needed hours as for pain. needed for up to for pain. 7 days for up to 7 days betamethaso No 1{appli Q24H Apply 1 Jj ly 1 ne valerate 7-26 cation} applicatio a pplicati (VALISONE) 14:34: n on 0.1 % cream 15 topically topi jeffrey daily as daily as needed. needed. desonide No 1{appli Q24H Apply 1 Apply 1 (DESOWEN) 7-26 cation} applicatio jj licati 0.05 % 14:34: n on cream 15 topically topically daily as daily as needed. needed. GLUC No 180MG Take 180 Take 180 HCL/CSA/COL 7-26 mg by mg by L HY/HYALUR 14:34: mouth mouth AC (JOINT 15 every every SUPPORT morning. morning. ORAL) ketoconazol No 1{appli Apply 1 Jj ly 1 e (NIZORAL) 7-26 cation} applicatio a pplicati 2 % cream 14:34: n on 15 topically topically daily. daily. VITAMIN B No 1mL Place 1 mL Plac e 1 COMPLEX-VIT 7-26 under the mL u nder B12 SL 14:34: tongue the 15 every tongue morning. every morning. betamethaso 2016-0 No 1{appli Q24H Apply 1 Jj ly 1 ne valerate 7-26 cation} applicatio a pplicati (VALISONE) 14:34: n on 0.1 % cream 15 topically topi jeffrey daily as daily as needed. needed. desonide 2016-0 No 1{appli Q24H Apply 1 Apply 1 (DESOWEN) 7-26 cation} applicatio jj licati 0.05 % 14:34: n on cream 15 topically topically daily as daily as needed. needed. ketoconazol 2016-0 No 1{appli Apply 1 Jj ly 1 e (NIZORAL) 7-26 cation} applicatio a pplicati 2 % cream 14:34: n on 15 topically topically daily as daily as needed. needed. GLUC 2016-0 No 180MG Take 180 Take 180 HCL/CSA/COL 7-26 mg by mg by L HY/HYALUR 14:34: mouth mouth AC (JOINT 15 every every SUPPORT morning. morning. ORAL) VITAMIN B 2015-[address] 1 mL Plac e 1 COMPLEX-VIT 7-26 under the mL u nder B12 SL 14:34: tongue the 15 every tongue morning. every morning. CELECOXIB 2015-0 No 200MG Take 200 Take 2 00 (CELEBREX 6-24 mg by mg by ORAL) 10:30: mouth mouth 34 every every morning. morning. CHOLECALCIF 2016-0 No 400U Take 400 Take 400 MARIZA, 6-24 Units by Units by VITAMIN D3, 10:30: mouth mouth (VITAMIN D3 34 every every ORAL) morning. morning. felodipine 2016-0 No 5MG Take 5 mg Take 5 mg (PLENDIL) 5 6-24 by mouth by mo uth MG 24 hr 10:30: every every tablet 34 morning. morning. LEVOTHYROXI 2016-0 No 75ug Take 75 Take 75 NE SODIUM 6-24 mcg by mcg by (LEVOTHYROX 10:30: mouth mouth INE ORAL) 34 every every morning. morning. losartan-hy 2016-0 No 1{tbl} Take 1 Take 1 drochloroth 6-24 tablet by tabl et by iazide 10:30: mouth mouth (HYZAAR) 34 every every 100-25 mg morning. morning . per tablet SIMVASTATIN 2016-0 No 40MG Take 40 mg Ta ke 40 ORAL 6-24 by mouth mg by 10:30: every mouth 34 evening. every evening. LEVOTHYROXI No 75ug Take 75 Take 75 NE SODIUM 6-24 mcg by mcg by (LEVOTHYROX 10:30: mouth mouth INE ORAL) 34 every every morning. morning. SIMVASTATIN No 40MG Take 40 mg Ta ke 40 ORAL 6-24 by mouth mg by 10:30: every mouth 34 evening. every evening. CELECOXIB No 200MG Take 200 Take 2 00 (CELEBREX 6-24 mg by mg by ORAL) 10:30: mouth mouth 34 every every morning. morning. CHOLECALCIF No 400U Take 400 Take 400 MARIZA, 6-24 Units by Units by VITAMIN D3, 10:30: mouth mouth (VITAMIN D3 34 every every ORAL) morning. morning. losartan-hy Yes 1{tbl} Take 1 Take 1 drochloroth 6-24 tablet by tabl et by iazide 10:30: mouth mouth (HYZAAR) 34 every every 100-25 mg morning. morning . per tablet felodipine No 10MG Take 10 mg Ryan e 10 (PLENDIL) 5 6-24 by mouth mg by MG 24 hr 10:30: every mouth tablet 34 morning. every morning. SIMVASTATIN No 40MG Take 40 mg Ta ke 40 ORAL 6-24 by mouth mg by 10:30: every mouth 34 evening. every evening. felodipine felodipine 2017- No UNKNOWN, 5MG 5 mg tablet 5 mg tablet 04-09 System extended extended 00:00: 00:00 [place] [facility] release 24 release 24 00 :00 hr hr levothyroxi levothyroxi 2017- No UNKNOWN, 100mcg ne 100 mcg ne 100 mcg 04-09 System tablet tablet 00:00: 00:00 [place] [facility] 00 :00 simvastatin simvastatin 2016- No UNKNOWN, 40MG 40 mg 40 mg 04-09 System tablet tablet 00:00: 00:00 [place] 00 :00 losartan-hy losartan-hy 2016- No UNKNOWN, MG drochloroth drochloroth 04-09 System iazide iazide 00:00: 00:00 [place] [facility] 100-25 mg 100-25 mg 00 :00 tablet tablet Zyrtec 10 Zyrtec 10 2007-0 2014- No UNKNOWN, 10MG mg mg 10-19 System 00:00: 00:00 [facility] 00 :00 Zithromax Zithromax 2004-09- No UNKNOWN, 250MG Z-fanny 250 Z-fanny 250 10-21 System mg mg 00:00: 00:00 [facility] [facility] 00 :00 Benicar 20 Benicar 20 2013- No UNKNOWN, 20MG mg mg 06-02 System 00:00: 00:00 [place] 00 :00 Cholecalcif Yes 1 mariza Felodipine Yes 1 ER Levothyroxi Yes 1 ne Sodium Losartan Yes 1 Potassium-H CTZ Simvastatin Yes 1 Imodium A-D 2019- No 1 10-29 09:22 :10 Acetaminoph 2018- en 08-06 10:04 :36 Diclofenac 2018- No Sodium 08-06 10:04 :53 Neosporin + Pain Relief 08-[address] 10:04 :45 Ferrous 2018- No 1 Sulfate 03-12 16:00 :06 Vitamin C 2018- No 1 03-12 16:00 :12 Problems Condition Condition Condition Status Onset Resolution Last Treatin g Comments Name Details Category Date Date Treatment Clinician Date Athyroidism Athyroidism CONDITION Active 2019-11-28 (acquired) (acquired) 12 10:39:29 10:39: 29 Vitamin D Vitamin D Diagnosis active deficiency deficiency 2 00:00: 00 Patient Patient Diagnosis active encounter encounter 15 status status 00:00: 00 Neoplasm of Neoplasm of CONDITION Active 2018-10-18 uncertain uncertain 10-18 12:49:18 behavior of behavior of 12:49: skin skin 18 Anemia Anemia CONDITION Active 2018-10-1110-11 11:15:15 11:15: 15 Encounter Encounter CONDITION Active 2018-10-11 for for 10-11 10:48:35 immunizatio immunizatio 10:48: n n 35 Pain Pain CONDITION Active 2017-092018-07-3009-29 15:23:32 15:23: 32 Visit for Visit for CONDITION Active 2017-092018-07-30 suture suture 09-29 14:15:02 removal removal 14:15: 02 LDL LDL CONDITION Active 2017-092018-07-27 receptor receptor 09-26 11:25:10 disorder disorder 11:25: 10 Thyrotoxico Thyrotoxico CONDITION Active 2017-092018-07-04 sis, sis, 0 09:03:41 unspecified unspecified 09:03: without without 41 thyrotoxic thyrotoxic crisis or crisis or storm storm Tachycardia Tachycardia CONDITION Active 2017-092018-07-03 , , 0-16 08:30:01 unspecified unspecified 08:30: 01 Anemia, Anemia, CONDITION Active 2017-092018-06-29 iron iron 0-12 11:49:04 deficiency deficiency 11:49: 04 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 0-10 00:00: 00 Low Low Condition Active 2017-092018-06-22 hemoglobin hemoglobin 0-05 08:25:40 00:00: 00 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) External External Condition Active 2018-05-16 hemorrhoids hemorrhoids 05-16 18:29:12 00:00: 00 Abnormal Abnormal CONDITION Active 2018-05-01 finding of finding of 05-01 10:22:44 blood blood 10:22: chemistry, chemistry, 44 unspecified unspecified Hypertensio Hypertensio CONDITION Active 2018-05-01 n, n, 05-01 10:22:20 essential, essential, 10:22: benign benign 20 Hypothyroid Hypothyroid CONDITION Active 2018-05-01 ism, ism, 05-01 10:22:17 unspecified unspecified 10:22: 17 Pain in Pain in CONDITION Active 2018-05-01 right hip right hip 05-01 09:57:02 09:57: 02 Other Other CONDITION Active 2018-05-01 screening screening 05-01 09:57:02 mammogram mammogram 09:57: 02 Vitamin D Vitamin D CONDITION Active 2018-05-01 deficiency, deficiency, 05-01 09:57:02 unspecified unspecified 09:57: 02 Other Other CONDITION Active 2018-05-01 ovarian ovarian 05-01 09:57:02 failure failure 09:57: 02 Acute Acute CONDITION Active 2018-05-01 cystitis cystitis 05-01 09:57:02 with with 09:57: hematuria hematuria 02 Rash Rash CONDITION Active 2018-05-0105-01 09:57:02 09:57: 02 Encounter Encounter CONDITION Active 2018-05-01 for other for other 05-01 09:57:02 preprocedur preprocedur 09:57: al al 02 examination examination Encounter Encounter CONDITION Active 2018-05-01 for routine for routine 05-01 09:57:02 gynecologic gynecologic 09:57: al al 02 examination examination BMI BMI CONDITION Active 2018-05-01 40.0-44.9, 40.0-44.9, 05-01 09:57:02 adult adult 09:57: 02 Encounter Encounter CONDITION Active 2018-05-01 for for 05-01 09:57:02 screening screening 09:57: for other for other 02 digestive digestive system system disorders disorders Palpitation Palpitation CONDITION Active 2018-05-01 s s 05-01 09:57:02 09:57: 02 Paroxysmal Paroxysmal CONDITION Active 2018-05-01 Supraventri Supraventri 05-01 09:57:01 cular cular 09:57: Tachycardia Tachycardia 01 Hyperthyroi Hyperthyroi CONDITION Active 2018-05-01 dism NOS, dism NOS, 05-01 09:57:01 without m without m 09:57: 01 INVALID-P INVALID-P CONDITION Active 2018-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 ure 05-01 09:57:01 hypercholes hypercholes 09:57: terolemia terolemia 01 Abdominal Abdominal CONDITION Active 2018-05-01 aortic aortic 05-01 09:57:01 ectasia ectasia 09:57: 01 Enlargement Enlargement CONDITION Active 2018-05-01 of thyroid of thyroid 05-01 09:57:01 09:57: 01 Postmenopau Postmenopau CONDITION Active 2018-05-01 kalli kalli 05-01 09:57:01 Bleeding Bleeding 09:57: 01 Essential Essential CONDITION Active 2018-05-01 hypertrigly hypertrigly 05-01 09:57:01 ceridemia ceridemia 09:57: 01 Dysuria Dysuria CONDITION Active 2018-05-0105-01 09:57:01 09:57: 01 Pure Pure CONDITION Active 2018-04-25 hypercholes hypercholes 04-25 10:23:32 terolemia, terolemia, 10:23: unspecified unspecified 32 Pure Pure CONDITION Active 2018-04-23 hyperglycer hyperglycer 04-23 21:19:20 idemia idemia 21:19: 20 Pre-operati Pre-operati CONDITION Active 2018-02-15 ve ve 02-15 09:40:50 examination examination 09:40: 50 Hypothyroid Hypothyroid CONDITION Active 2018-02-14 ism ism 02-14 08:45:59 (acquired) (acquired) 08:45: 59 Hypercholes Hypercholes CONDITION Active 2018-02-13 terolemia terolemia 02-13 13:57:13 13:57: 13 Postop Postop Condition Active 2016-092017-07-26 check check 09-25 16:50:26 00:00: 00 Internal Internal Condition Active 2016-092017-06-30 hemorrhoids hemorrhoids 0- 14:36:30 00:00: 00 S/P partial S/P partial Condition Active 2016-05-27 thyroidecto thyroidecto 05-27 08:19:37 my my 00:00: 00 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 05-27 08:19:41 00:00: 00 Cystosarcom Cystosarcom Condition Active 2016-02-09 a phyllodes a phyllodes 02-08 10:01:44 of left of left 00:00: breast breast 00 Obesity, Obesity, Condition Active 2016-02-09 morbid, BMI morbid, BMI 02-08 10:19:46 40.0-49.9 40.0-49.9 00:00: 00 Supraventri Supraventri Condition Active 2016-02-09 cular cular 02-08 10:34:55 tachycardia tachycardia 00:00: 00 History of History of Condition Active 2016-02-09 radioactive radioactive 02-08 10:34:57 iodine iodine 00:00: thyroid thyroid 00 ablation ablation Paroxysmal Paroxysmal CONDITION Inactiv 2014-12-22 Supraventri Supraventri e 12-22 00:00:00 cular cular 00:00: Tachycardia Tachycardia 00 - Status is - Status is Inactive Inactive Substernal Substernal Condition Resolve 2015-2016-05-27 2016-02-09 thyroid thyroid d 02-08 00:00:00 10:03:02 goiter goiter 00:00: 00 Procedures Procedure Date / Time Performed Performing Clinician Devic e SURGICAL PATHOLOGY EXAM 2018-11-13 14:16:00 Za Shepherd Lab Handling Fee 2018-10-18 00:00:00 <PR1.3.2><PR1.3.2.1>Incision 2018-10-18 00:00:00 </PR1.3.2.1 Administration Of Influenza 2018-10-11 00:00:00 Virus Vaccin <PR1.3.2><PR1.3.2.1>Fluzone High 2018-10-11 00:00:00 Dose, a Office Outpt Est 2018-10-11 00:00:00 Blood count complete CBC 2018-10-11 00:00:00 Compre Metab Panel 2018-10-11 00:00:00 Hemoglobin A1C 2018-10-11 00:00:00 Lipid Panel 2018-10-11 00:00:00 Thyr Stimulating Horm 2018-10-11 00:00:00 Venipuncture 2018-10-11 00:00:00 CT CHEST W CONTRAST 2018-06-07 14:49:[address] ABDOMEN PELVIS W CONTRAST 2018-06-07 14:49:36 Annika Nair BUN 2018-06-07 13:11:00 Mayra Swartz CREATININE 2018-06-07 13:11:00 Mayra Swartz SURGICAL PATHOLOGY EXAM 2018-05-24 14:45:00 Annika Nair ANORECTAL EXAM, SURGICAL, 2018-05-24 14:15:00 Annika Nair REQUIRING ANESTHESIA (GENERAL, SPINAL, OR EPIDURAL), DIAGNOSTIC ECG 12-LEAD 2018-05-18 11:27:55 Robin Dawn Compre Metab Panel 2018-05-01 00:00:00 Hemoglobin A1C 2018-05-01 00:00:00 Lipid Panel 2018-05-01 00:00:00 Thyr Stimulating Horm 2018-05-01 00:00:00 Venipuncture 2018-05-01 00:00:00 Office Outpt Est 2018-05-01 00:00:00 Body Mass Index Documented 2017-12-12 00:00:00 Calc Bmi Within Normal 2017-12-12 00:00:00 Parameters And Do <PR1.3.2><PR1.3.2.1>Colorectal 2017-12-12 00:00:00 Cancer Sc Most Recent Diastolic Blood 2017-12-12 00:00:00 Pressure >= Most Recent Diastolic Bp > Or = 2017-12-12 00:00:00 90mmhg Most Recent Systolic Blood 2017-12-12 00:00:00 Pressure >= 1 Most Recent Systolic Bp > Or = 2017-12-12 00:00:00 140mmhg Office Outpt Est 2017-12-12 00:00:00 Rvw All Meds By Rxng Prctionr Or 2017-12-12 00:00:00 Clin Rp <PR1.3.2><PR1.3.2.1>Tobacco 2017-12-12 00:00:00 Non-Smoker < COLONOSCOPY 2017-07-17 08:46:35 Provider, Not In System colonoscopy 2016-09-18 00:00:00 Office Outpt Est 2016-08-15 00:00:00 Heart Ablation 2004-09-18 00:00:00 Phyllodes tumor 1998-09-18 00:00:00 Ovarian Cyst Removal Lumpectomy Arthroplasty- Hip Thyroidectomy [place] Tooth Extraction hysterectomy D&C Hemorrhoids Rectal Biopsy MOHS on forehead & nose Results Test Description Test Time Test Comments Text Results Atomic Results Result Comments Creatinine 2020-05-04 14:32:00 Test Item Value Reference Range Comments Creatinine (test code = Creatinine) 1.0500 mg/dL 0.5700-1.000 0 Cr Clearance (Est) (test code = Cr Clearance 78.8600 75. 0000-115.0000 (Est)) Glucose (test code = Glucose) 128.0000 mg/dL 65.0000-99.0000 BUN (test code = BUN) 23.0000 mg/dL 8.0000-27.0000 eGFR Zts-Wzebkgf-Gnyijpal (test code = eGFR 53.0000 Adj-Gniuazd-Uumkbasr) eGFR -Luxembourger (test code = eGFR 61.0000 -Luxembourger) BUN/Creat Ratio (test code = BUN/Creat Ratio) 22.0000 12 .0000-28.0000 Sodium (test code = Sodium) 142.0000 mmol/L 134.0000-144.0000 Potassium (test code = Potassium) 4.5000 mmol/L 3.5000-5.2000 Chloride (test code = Chloride) 105.0000 mmol/L 96.0000-106.0000 CO2 (test code = CO2) 23.0000 mmol/L 20.0000-29.0000 Calcium (test code = Calcium) 9.3000 mg/dL 8.7000-10.3000 Protein, Total (test code = Protein, Total) 7.0000 g/dL 6.00 00-8.5000 Albumin (test code = Albumin) 4.1000 g/dL 3.7000-4.7000 Globulin (test code = Globulin) 2.9000 g/dL 1.5000-4.5000 A/G Ratio (test code = A/G Ratio) 1.4000 1.2000-2.2000 Bilirubin, Total (test code = Bilirubin, Total) 0.3000 mg/dL 0.0000-1.2000 Alkaline Phosphatase (test code = Alkaline 102.0000 39.00 00-117.0000 Phosphatase) AST (SGOT) (test code = AST (SGOT)) 17.0000 0.0000-40.00 00 ALT (SGPT) (test code = ALT (SGPT)) 17.0000 0.0000-32.00 00 Vitamin D (25-Hydroxy) (test code = Vitamin D 41.2000 ng/mL 30 .0000-100.0000 (25-Hydroxy)) [id number] 14:41:00 Test Item Value Reference Range Comments WBC (test code = WBC) 6.7000 4.0000-10.0000 Lymphocytes % (test code = Lymphocytes %) 14.5000 % 22.400 0-43.6000 MID% (test code = MID%) 4.3000 % 1.2000-11.2000 Neutrophils % (test code = Neutrophils %) 81.2000 % 48.900 0-69.9000 Lymphocytes (test code = Lymphocytes) 0.9000 1.2000-3.2 000 MID (test code = MID) 0.4000 0.1000-1.1000 Neutrophils (test code = Neutrophils) 5.4000 1.5000-6.7 000 RBC (test code = RBC) 4.3800 3.7000-4.9000 HGB (test code = HGB) 13.6000 g/dL 11.2000-18.0000 HCT (test code = HCT) 39.7000 % 34.0000-44.0000 MCV (test code = MCV) 90.7000 fL 80.0000-94.0000 MCH (test code = MCH) 31.1000 pg 27.0000-34.0000 MCHC (test code = MCHC) 34.2000 g/dL 31.5000-36.0000 RDW (test code = RDW) 14.3000 11.0000-18.0000 PLT (test code = PLT) 240.0000 140.0000-440.0000 MPV (test code = MPV) 7.8000 fL 6.8000-10.6000 Vitamin [id number] 11:26:00 Test Item Value Reference Range Comments Vitamin B12 (test code = Vitamin B12) 306.0000 pg/mL 232.0000-1 245.0000 Folate (test code = Folate) 6.9000 ng/mL TSH (test code = TSH) 2.4700 0.4500-4.5000 Vitamin D (25-Hydroxy) (test code = 24.1000 ng/mL 30.0000-100. 0000 Vitamin D (25-Hydroxy)) Ferritin (test code = Ferritin) 115.0000 ng/mL 15.0000-150.0000 [id number] 09:33:00 Test Item Value Reference Range Comments Creatinine (test code = Creatinine) 1.1000 mg/dL 0.5000-1.200 0 Cr Clearance (Est) (test code = Cr 74.0900 75.0000-115.0 000 Clearance (Est)) Glucose (test code = Glucose) 112.0000 mg/dL 70.0000-118.0000 BUN (test code = BUN) 21.0000 mg/dL 7.0000-22.0000 Sodium (test code = Sodium) 140.0000 mmol/L 128.0000-145.0000 Potassium (test code = Potassium) 3.9000 mmol/L 3.6000-5.1000 Chloride (test code = Chloride) 107.0000 mmol/L 96.0000-108.0000 CO2 (test code = CO2) 25.0000 mmol/L 18.0000-33.0000 Calcium (test code = Calcium) 8.4500 mg/dL 8.0000-10.3000 Alkaline Phosphatase (test code = Alkaline 68.0000 42.00 00-141.0000 Phosphatase) ALT (SGPT) (test code = ALT (SGPT)) 9.0000 10.0000-47.0 000 AST (SGOT) (test code = AST (SGOT)) 14.0000 11.0000-37.0 000 Bilirubin, Total (test code = Bilirubin, 0.6000 mg/dL 0.0000- 1.6000 Total) Albumin (test code = Albumin) 3.8000 g/dL 3.5000-5.5000 Protein, Total (test code = Protein, 5.9000 g/dL 6.4000-8.10 00 Total) eGFR -Luxembourger (test code = eGFR 59.0000 60.0000- 200.0000 -Luxembourger) eGFR Fyr-Okqbtcv-Jnfoywik (test code = 49.0000 60.0000-2 00.0000 eGFR Tbx-Sxacspo-Pcoypowi) [id number] 09:32:00 Test Item Value Reference Range Comments WBC (test code = WBC) 4.5000 4.0000-10.0000 Lymphocytes % (test code = Lymphocytes %) 12.7000 % 22.400 0-43.6000 MID% (test code = MID%) 5.1000 % 1.2000-11.2000 Neutrophils % (test code = Neutrophils %) 82.2000 % 48.900 0-69.9000 Lymphocytes (test code = Lymphocytes) 0.5000 1.2000-3.2 000 MID (test code = MID) 0.3000 0.1000-1.1000 Neutrophils (test code = Neutrophils) 3.7000 1.5000-6.7 000 RBC (test code = RBC) 3.5500 3.7000-4.9000 HGB (test code = HGB) 10.9000 g/dL 11.2000-18.0000 HCT (test code = HCT) 34.1000 % 34.0000-44.0000 MCV (test code = MCV) 96.0000 fL 80.0000-94.0000 MCH (test code = MCH) 30.7000 pg 27.0000-34.0000 MCHC (test code = MCHC) 31.9000 g/dL 31.5000-36.0000 RDW (test code = RDW) 15.1000 11.0000-18.0000 PLT (test code = PLT) 227.0000 140.0000-440.0000 MPV (test code = MPV) 7.1000 fL 6.8000-10.6000 [id number] 10:31:00 Test Item Value Reference Range Comments WBC (test code = WBC) 6.2000 4.0000-10.0000 Lymphocytes % (test code = Lymphocytes %) 5.1000 % 22.400 0-43.6000 MID% (test code = MID%) 6.7000 % 1.2000-11.2000 Neutrophils % (test code = Neutrophils %) 88.2000 % 48.900 0-69.9000 Lymphocytes (test code = Lymphocytes) 0.3000 1.2000-3.2 000 MID (test code = MID) 0.4000 0.1000-1.1000 Neutrophils (test code = Neutrophils) 5.5000 1.5000-6.7 000 RBC (test code = RBC) 3.5300 3.7000-4.9000 HGB (test code = HGB) 10.6000 g/dL 11.2000-18.0000 HCT (test code = HCT) 33.5000 % 34.0000-44.0000 MCV (test code = MCV) 94.8000 fL 80.0000-94.0000 MCH (test code = MCH) 30.0000 pg 27.0000-34.0000 MCHC (test code = MCHC) 31.6000 g/dL 31.5000-36.0000 RDW (test code = RDW) 16.6000 11.0000-18.0000 PLT (test code = PLT) 261.0000 140.0000-440.0000 MPV (test code = MPV) 7.6000 fL 6.8000-10.6000 [id number] 10:31:00 Test Item Value Reference Range Comments Creatinine (test code = Creatinine) 0.9000 mg/dL 0.5000-1.200 0 Cr Clearance (Est) (test code = Cr 91.5200 75.0000-115.0 000 Clearance (Est)) Glucose (test code = Glucose) 116.0000 mg/dL 70.0000-118.0000 BUN (test code = BUN) 18.0000 mg/dL 7.0000-22.0000 Sodium (test code = Sodium) 139.0000 mmol/L 128.0000-145.0000 Potassium (test code = Potassium) 3.8000 mmol/L 3.6000-5.1000 Chloride (test code = Chloride) 106.0000 mmol/L 96.0000-108.0000 CO2 (test code = CO2) 25.0000 mmol/L 18.0000-33.0000 Calcium (test code = Calcium) 8.8000 mg/dL 8.0000-10.3000 Alkaline Phosphatase (test code = Alkaline 67.0000 42.00 00-141.0000 Phosphatase) ALT (SGPT) (test code = ALT (SGPT)) 13.0000 10.0000-47.0 000 AST (SGOT) (test code = AST (SGOT)) 15.0000 11.0000-37.0 000 Bilirubin, Total (test code = Bilirubin, 0.4000 mg/dL 0.0000- 1.6000 Total) Albumin (test code = Albumin) 3.7000 g/dL 3.5000-5.5000 Protein, Total (test code = Protein, 6.1000 g/dL 6.4000-8.10 00 Total) eGFR -Luxembourger (test code = eGFR 75.0000 60.0000- 200.0000 -Luxembourger) eGFR Nbi-Tkddbxh-Qamefrfe (test code = 62.0000 60.0000-2 00.0000 eGFR Aof-Fwpsnjc-Fsulromk) Magnesium (test code = Magnesium) 1.5000 mg/dL 1.6000-2.3000 [id number] 12:04:00 Test Item Value Reference Range Comments Creatinine (test code = Creatinine) 1.1800 mg/dL 0.5700-1.000 0 Cr Clearance (Est) (test code = Cr 69.0600 75.0000-115.0 000 Clearance (Est)) Glucose (test code = Glucose) 108.0000 mg/dL 65.0000-99.0000 BUN (test code = BUN) 15.0000 mg/dL 8.0000-27.0000 eGFR Ety-Gxtyndh-Uczgalxe (test code = 46.0000 eGFR Foh-Rvyymli-Lhphgypg) eGFR -Luxembourger (test code = eGFR 53.0000 -Luxembourger) BUN/Creat Ratio (test code = BUN/Creat 13.0000 12.0000-2 8.0000 Ratio) Sodium (test code = Sodium) 143.0000 mmol/L 134.0000-144.0000 Potassium (test code = Potassium) 3.7000 mmol/L 3.5000-5.2000 Chloride (test code = Chloride) 104.0000 mmol/L 96.0000-106.0000 CO2 (test code = CO2) 19.0000 mmol/L 20.0000-29.0000 Calcium (test code = Calcium) 9.2000 mg/dL 8.7000-10.3000 Protein, Total (test code = Protein, 6.6000 g/dL 6.0000-8.50 00 Total) Albumin (test code = Albumin) 4.0000 g/dL 3.5000-4.8000 Globulin (test code = Globulin) 2.6000 g/dL 1.5000-4.5000 A/G Ratio (test code = A/G Ratio) 1.5000 1.2000-2.2000 Bilirubin, Total (test code = Bilirubin, 0.6000 mg/dL 0.0000- 1.2000 Total) Alkaline Phosphatase (test code = Alkaline 98.0000 39.00 00-117.0000 Phosphatase) AST (SGOT) (test code = AST (SGOT)) 16.0000 0.0000-40.00 00 ALT (SGPT) (test code = ALT (SGPT)) 11.0000 0.0000-32.00 00 Iron, Total (test code = Iron, Total) 78.0000 27.0000-13 9.0000 TIBC (test code = TIBC) 301.0000 250.0000-450.0000 UIBC (test code = UIBC) 223.0000 118.0000-369.0000 % Iron Saturation (test code = % Iron 26.0000 % 15.0000-55 .0000 Saturation) Ferritin (test code = Ferritin) 264.0000 ng/mL 15.0000-150.0000 [id number] 09:26:00 Test Item Value Reference Range Comments WBC (test code = WBC) 4.1000 4.0000-10.0000 Lymphocytes % (test code = Lymphocytes %) 7.8000 % 22.400 0-43.6000 MID% (test code = MID%) 11.8000 % 1.2000-11.2000 Neutrophils % (test code = Neutrophils %) 80.4000 % 48.900 0-69.9000 Lymphocytes (test code = Lymphocytes) 0.3000 1.2000-3.2 000 MID (test code = MID) 0.5000 0.1000-1.1000 Neutrophils (test code = Neutrophils) 3.3000 1.5000-6.7 000 RBC (test code = RBC) 3.6500 3.7000-4.9000 HGB (test code = HGB) 10.8000 g/dL 11.2000-18.0000 HCT (test code = HCT) 32.9000 % 34.0000-44.0000 MCV (test code = MCV) 90.2000 fL 80.0000-94.0000 MCH (test code = MCH) 29.8000 pg 27.0000-34.0000 MCHC (test code = MCHC) 33.0000 g/dL 31.5000-36.0000 RDW (test code = RDW) 17.6000 11.0000-18.0000 PLT (test code = PLT) 330.0000 140.0000-440.0000 MPV (test code = MPV) 7.3000 fL 6.8000-10.6000 [id number] 09:26:00 Test Item Value Reference Range Comments Magnesium (test code = Magnesium) 1.5000 mg/dL 1.6000-2.3000 Creatinine (test code = Creatinine) 1.2000 mg/dL 0.5000-1.200 0 Cr Clearance (Est) (test code = Cr 67.9100 75.0000-115.0 000 Clearance (Est)) Glucose (test code = Glucose) 114.0000 mg/dL 70.0000-118.0000 BUN (test code = BUN) 18.0000 mg/dL 7.0000-22.0000 Sodium (test code = Sodium) 138.0000 mmol/L 128.0000-145.0000 Potassium (test code = Potassium) 3.4000 mmol/L 3.6000-5.1000 Chloride (test code = Chloride) 106.0000 mmol/L 96.0000-108.0000 CO2 (test code = CO2) 26.0000 mmol/L 18.0000-33.0000 Calcium (test code = Calcium) 8.6600 mg/dL 8.0000-10.3000 Alkaline Phosphatase (test code = Alkaline 86.0000 42.00 00-141.0000 Phosphatase) ALT (SGPT) (test code = ALT (SGPT)) 9.0000 10.0000-47.0 000 AST (SGOT) (test code = AST (SGOT)) 16.0000 11.0000-37.0 000 Bilirubin, Total (test code = Bilirubin, 0.9000 mg/dL 0.0000- 1.6000 Total) Albumin (test code = Albumin) 3.9000 g/dL 3.5000-5.5000 Protein, Total (test code = Protein, 6.4000 g/dL 6.4000-8.10 00 Total) eGFR -Luxembourger (test code = eGFR 54.0000 60.0000- 200.0000 -Luxembourger) eGFR Fzx-Tlwoxtj-Kyrieoka (test code = 44.0000 60.0000-2 00.0000 eGFR Vve-Lpeuxrc-Insussrt) [id number] 09:50:00 Test Item Value Reference Range Comments WBC (test code = WBC) 2.8000 4.0000-10.0000 Lymphocytes % (test code = Lymphocytes %) 3.9000 % 22.400 0-43.6000 MID% (test code = MID%) 5.4000 % 1.2000-11.2000 Neutrophils % (test code = Neutrophils %) 90.7000 % 48.900 0-69.9000 Lymphocytes (test code = Lymphocytes) 0.1000 1.2000-3.2 000 MID (test code = MID) 0.1000 0.1000-1.1000 Neutrophils (test code = Neutrophils) 2.6000 1.5000-6.7 000 RBC (test code = RBC) 3.5300 3.7000-4.9000 HGB (test code = HGB) 10.2000 g/dL 11.2000-18.0000 HCT (test code = HCT) 31.4000 % 34.0000-44.0000 MCV (test code = MCV) 88.8000 fL 80.0000-94.0000 MCH (test code = MCH) 28.8000 pg 27.0000-34.0000 MCHC (test code = MCHC) 32.4000 g/dL 31.5000-36.0000 RDW (test code = RDW) 15.7000 11.0000-18.0000 PLT (test code = PLT) 68.0000 140.0000-440.0000 MPV (test code = MPV) 7.5000 fL 6.8000-10.6000 [id number] 09:50:00 Test Item Value Reference Range Comments Creatinine (test code = Creatinine) 1.2000 mg/dL 0.5000-1.200 0 Cr Clearance (Est) (test code = Cr 67.9100 75.0000-115.0 000 Clearance (Est)) Glucose (test code = Glucose) 124.0000 mg/dL 70.0000-118.0000 BUN (test code = BUN) 22.0000 mg/dL 7.0000-22.0000 Sodium (test code = Sodium) 137.0000 mmol/L 128.0000-145.0000 Potassium (test code = Potassium) 3.1000 mmol/L 3.6000-5.1000 Chloride (test code = Chloride) 101.0000 mmol/L 96.0000-108.0000 CO2 (test code = CO2) 24.0000 mmol/L 18.0000-33.0000 Calcium (test code = Calcium) 9.1100 mg/dL 8.0000-10.3000 Alkaline Phosphatase (test code = Alkaline 70.0000 42.00 00-141.0000 Phosphatase) ALT (SGPT) (test code = ALT (SGPT)) 11.0000 10.0000-47.0 000 AST (SGOT) (test code = AST (SGOT)) 16.0000 11.0000-37.0 000 Bilirubin, Total (test code = Bilirubin, 0.5000 mg/dL 0.0000- 1.6000 Total) Albumin (test code = Albumin) 3.9000 g/dL 3.5000-5.5000 Protein, Total (test code = Protein, 5.9000 g/dL 6.4000-8.10 00 Total) eGFR -Luxembourger (test code = eGFR 54.0000 60.0000- 200.0000 -Luxembourger) eGFR Qqa-Fncgery-Qzczusih (test code = 44.0000 60.0000-2 00.0000 eGFR Ost-Cxaumak-Oiecajhz) [id number] 10:33:00 Test Item Value Reference Range Comments WBC (test code = WBC) 1.7000 4.0000-10.0000 Lymphocytes % (test code = Lymphocytes %) 7.1000 % 22.400 0-43.6000 MID% (test code = MID%) 3.1000 % 1.2000-11.2000 Neutrophils % (test code = Neutrophils %) 89.8000 % 48.900 0-69.9000 Lymphocytes (test code = Lymphocytes) 0.1000 1.2000-3.2 000 MID (test code = MID) 0.1000 0.1000-1.1000 Neutrophils (test code = Neutrophils) 1.5000 1.5000-6.7 000 RBC (test code = RBC) 3.9300 3.7000-4.9000 HGB (test code = HGB) 10.8000 g/dL 11.2000-18.0000 HCT (test code = HCT) 34.7000 % 34.0000-44.0000 MCV (test code = MCV) 88.4000 fL 80.0000-94.0000 MCH (test code = MCH) 27.6000 pg 27.0000-34.0000 MCHC (test code = MCHC) 31.2000 g/dL 31.5000-36.0000 RDW (test code = RDW) 15.2000 11.0000-18.0000 PLT (test code = PLT) 192.0000 140.0000-440.0000 MPV (test code = MPV) 7.5000 fL 6.8000-10.6000 [id number] 10:33:00 Test Item Value Reference Range Comments Creatinine (test code = Creatinine) 1.2000 mg/dL 0.5000-1.200 0 Cr Clearance (Est) (test code = Cr 69.5500 75.0000-115.0 000 Clearance (Est)) Glucose (test code = Glucose) 114.0000 mg/dL 70.0000-118.0000 BUN (test code = BUN) 28.0000 mg/dL 7.0000-22.0000 Sodium (test code = Sodium) 136.0000 mmol/L 128.0000-145.0000 Potassium (test code = Potassium) 3.8000 mmol/L 3.6000-5.1000 Chloride (test code = Chloride) 103.0000 mmol/L 96.0000-108.0000 CO2 (test code = CO2) 25.0000 mmol/L 18.0000-33.0000 Calcium (test code = Calcium) 6.6900 mg/dL 8.0000-10.3000 Alkaline Phosphatase (test code = Alkaline 67.0000 42.00 00-141.0000 Phosphatase) ALT (SGPT) (test code = ALT (SGPT)) 11.0000 10.0000-47.0 000 AST (SGOT) (test code = AST (SGOT)) 13.0000 11.0000-37.0 000 Bilirubin, Total (test code = Bilirubin, 1.0000 mg/dL 0.0000- 1.6000 Total) Albumin (test code = Albumin) 3.7000 g/dL 3.5000-5.5000 Protein, Total (test code = Protein, 5.8000 g/dL 6.4000-8.10 00 Total) eGFR -Luxembourger (test code = eGFR 54.0000 60.0000- 200.0000 -Luxembourger) eGFR Hkw-Odhxlbp-Yihxshaq (test code = 44.0000 60.0000-2 00.0000 eGFR Edg-Jlzurtl-Xvzfyezq) [id number] 10:29:00 Test Item Value Reference Range Comments WBC (test code = WBC) 4.3000 4.0000-10.0000 Lymphocytes % (test code = Lymphocytes %) 5.5000 % 22.400 0-43.6000 MID% (test code = MID%) 6.9000 % 1.2000-11.2000 Neutrophils % (test code = Neutrophils %) 87.6000 % 48.900 0-69.9000 Lymphocytes (test code = Lymphocytes) 0.2000 1.2000-3.2 000 MID (test code = MID) 0.4000 0.1000-1.1000 Neutrophils (test code = Neutrophils) 3.7000 1.5000-6.7 000 RBC (test code = RBC) 3.9800 3.7000-4.9000 HGB (test code = HGB) 11.9000 g/dL 11.2000-18.0000 HCT (test code = HCT) 35.0000 % 34.0000-44.0000 MCV (test code = MCV) 87.7000 fL 80.0000-94.0000 MCH (test code = MCH) 29.8000 pg 27.0000-34.0000 MCHC (test code = MCHC) 34.0000 g/dL 31.5000-36.0000 RDW (test code = RDW) 15.2000 11.0000-18.0000 PLT (test code = PLT) 223.0000 140.0000-440.0000 MPV (test code = MPV) 7.7000 fL 6.8000-10.6000 [id number] 10:29:00 Test Item Value Reference Range Comments Creatinine (test code = Creatinine) 1.1000 mg/dL 0.5000-1.200 0 Cr Clearance (Est) (test code = Cr 75.8700 75.0000-115.0 000 Clearance (Est)) Glucose (test code = Glucose) 114.0000 mg/dL 70.0000-118.0000 BUN (test code = BUN) 17.0000 mg/dL 7.0000-22.0000 Sodium (test code = Sodium) 137.0000 mmol/L 128.0000-145.0000 Potassium (test code = Potassium) 3.3000 mmol/L 3.6000-5.1000 Chloride (test code = Chloride) 101.0000 mmol/L 96.0000-108.0000 CO2 (test code = CO2) 27.0000 mmol/L 18.0000-33.0000 Calcium (test code = Calcium) 8.8700 mg/dL 8.0000-10.3000 Alkaline Phosphatase (test code = Alkaline 71.0000 42.00 00-141.0000 Phosphatase) ALT (SGPT) (test code = ALT (SGPT)) 13.0000 10.0000-47.0 000 AST (SGOT) (test code = AST (SGOT)) 16.0000 11.0000-37.0 000 Bilirubin, Total (test code = Bilirubin, 0.9000 mg/dL 0.0000- 1.6000 Total) Albumin (test code = Albumin) 4.1000 g/dL 3.5000-5.5000 Protein, Total (test code = Protein, 5.9000 g/dL 6.4000-8.10 00 Total) eGFR -Luxembourger (test code = eGFR 59.0000 60.0000- 200.0000 -Luxembourger) eGFR Ksz-Wfgjtyt-Ykwrbwbf (test code = 49.0000 60.0000-2 00.0000 eGFR Mfe-Mueddhc-Gjjmpvro) [id number] 10:48:00 Test Item Value Reference Range Comments WBC (test code = WBC) 3.7000 4.0000-10.0000 Lymphocytes % (test code = Lymphocytes %) 12.3000 % 22.400 0-43.6000 MID% (test code = MID%) 4.3000 % 1.2000-11.2000 Neutrophils % (test code = Neutrophils %) 83.4000 % 48.900 0-69.9000 Lymphocytes (test code = Lymphocytes) 0.4000 1.2000-3.2 000 MID (test code = MID) 0.2000 0.1000-1.1000 Neutrophils (test code = Neutrophils) 3.1000 1.5000-6.7 000 RBC (test code = RBC) 3.9700 3.7000-4.9000 HGB (test code = HGB) 11.9000 g/dL 11.2000-18.0000 HCT (test code = HCT) 36.0000 % 34.0000-44.0000 MCV (test code = MCV) 90.5000 fL 80.0000-94.0000 MCH (test code = MCH) 30.0000 pg 27.0000-34.0000 MCHC (test code = MCHC) 33.1000 g/dL 31.5000-36.0000 RDW (test code = RDW) 14.8000 11.0000-18.0000 PLT (test code = PLT) 115.0000 140.0000-440.0000 MPV (test code = MPV) 8.0000 fL 6.8000-10.6000 [id number] 13:28:00 Test Item Value Reference Range Comments WBC (test code = WBC) 1.4000 4.0000-10.0000 Lymphocytes % (test code = Lymphocytes %) 32.6000 % 22.400 0-43.6000 MID% (test code = MID%) 9.1000 % 1.2000-11.2000 Neutrophils % (test code = Neutrophils %) 58.3000 % 48.900 0-69.9000 Lymphocytes (test code = Lymphocytes) 0.4000 1.2000-3.2 000 MID (test code = MID) 0.2000 0.1000-1.1000 Neutrophils (test code = Neutrophils) 0.8000 1.5000-6.7 000 RBC (test code = RBC) 3.8400 3.7000-4.9000 HGB (test code = HGB) 11.5000 g/dL 11.2000-18.0000 HCT (test code = HCT) 34.4000 % 34.0000-44.0000 MCV (test code = MCV) 89.4000 fL 80.0000-94.0000 MCH (test code = MCH) 30.0000 pg 27.0000-34.0000 MCHC (test code = MCHC) 33.6000 g/dL 31.5000-36.0000 RDW (test code = RDW) 14.0000 11.0000-18.0000 PLT (test code = PLT) 123.0000 140.0000-440.0000 MPV (test code = MPV) 8.5000 fL 6.8000-10.6000 [id number] 13:28:00 Test Item Value Reference Range Comments Creatinine (test code = Creatinine) 0.9000 mg/dL 0.5000-1.200 0 Cr Clearance (Est) (test code = Cr 94.6000 75.0000-115.0 000 Clearance (Est)) Glucose (test code = Glucose) 150.0000 mg/dL 70.0000-118.0000 BUN (test code = BUN) 14.0000 mg/dL 7.0000-22.0000 Sodium (test code = Sodium) 139.0000 mmol/L 128.0000-145.0000 Potassium (test code = Potassium) 3.3000 mmol/L 3.6000-5.1000 Chloride (test code = Chloride) 102.0000 mmol/L 96.0000-108.0000 CO2 (test code = CO2) 27.0000 mmol/L 18.0000-33.0000 Calcium (test code = Calcium) 8.6100 mg/dL 8.0000-10.3000 Alkaline Phosphatase (test code = Alkaline 67.0000 42.00 00-141.0000 Phosphatase) ALT (SGPT) (test code = ALT (SGPT)) 14.0000 10.0000-47.0 000 AST (SGOT) (test code = AST (SGOT)) 15.0000 11.0000-37.0 000 Bilirubin, Total (test code = Bilirubin, 0.5000 mg/dL 0.0000- 1.6000 Total) Albumin (test code = Albumin) 3.9000 g/dL 3.5000-5.5000 Protein, Total (test code = Protein, 5.6000 g/dL 6.4000-8.10 00 Total) eGFR -Luxembourger (test code = eGFR 75.0000 60.0000- 200.0000 -Luxembourger) eGFR Zny-Srijxts-Phsdthdm (test code = 62.0000 60.0000-2 00.0000 eGFR Oyd-Tluzybc-Ngvgbzad) [id number] 14:38:00 Test Item Value Reference Range Comments WBC (test code = WBC) 3.0000 4.0000-10.0000 Lymphocytes % (test code = Lymphocytes %) 21.6000 % 22.400 0-43.6000 MID% (test code = MID%) 5.1000 % 1.2000-11.2000 Neutrophils % (test code = Neutrophils %) 73.3000 % 48.900 0-69.9000 Lymphocytes (test code = Lymphocytes) 0.6000 1.2000-3.2 000 MID (test code = MID) 0.2000 0.1000-1.1000 Neutrophils (test code = Neutrophils) 2.2000 1.5000-6.7 000 RBC (test code = RBC) 4.1000 3.7000-4.9000 HGB (test code = HGB) 11.8000 g/dL 11.2000-18.0000 HCT (test code = HCT) 37.4000 % 34.0000-44.0000 MCV (test code = MCV) 91.2000 fL 80.0000-94.0000 MCH (test code = MCH) 28.9000 pg 27.0000-34.0000 MCHC (test code = MCHC) 31.7000 g/dL 31.5000-36.0000 RDW (test code = RDW) 13.9000 11.0000-18.0000 PLT (test code = PLT) 158.0000 140.0000-440.0000 MPV (test code = MPV) 8.6000 fL 6.8000-10.6000 [id number] 11:08:00 Test Item Value Reference Range Comments WBC (test code = WBC) 6.7000 4.0000-10.0000 Lymphocytes % (test code = Lymphocytes %) 24.1000 % 22.400 0-43.6000 MID% (test code = MID%) 7.7000 % 1.2000-11.2000 Neutrophils % (test code = Neutrophils %) 68.2000 % 48.900 0-69.9000 Lymphocytes (test code = Lymphocytes) 1.6000 1.2000-3.2 000 MID (test code = MID) 0.5000 0.1000-1.1000 Neutrophils (test code = Neutrophils) 4.6000 1.5000-6.7 000 RBC (test code = RBC) 4.9800 3.7000-4.9000 HGB (test code = HGB) 14.0000 g/dL 11.2000-18.0000 HCT (test code = HCT) 45.1000 % 34.0000-44.0000 MCV (test code = MCV) 90.6000 fL 80.0000-94.0000 MCH (test code = MCH) 28.1000 pg 27.0000-34.0000 MCHC (test code = MCHC) 31.0000 g/dL 31.5000-36.0000 RDW (test code = RDW) 14.0000 11.0000-18.0000 PLT (test code = PLT) 297.0000 140.0000-440.0000 MPV (test code = MPV) 8.5000 fL 6.8000-10.6000 [id number] 11:08:00 Test Item Value Reference Range Comments Creatinine (test code = Creatinine) 1.0000 mg/dL 0.5000-1.200 0 Cr Clearance (Est) (test code = Cr 86.0800 75.0000-115.0 000 Clearance (Est)) Glucose (test code = Glucose) 104.0000 mg/dL 70.0000-118.0000 BUN (test code = BUN) 24.0000 mg/dL 7.0000-22.0000 Sodium (test code = Sodium) 142.0000 mmol/L 128.0000-145.0000 Potassium (test code = Potassium) 3.4000 mmol/L 3.6000-5.1000 Chloride (test code = Chloride) 101.0000 mmol/L 96.0000-108.0000 CO2 (test code = CO2) 27.0000 mmol/L 18.0000-33.0000 Calcium (test code = Calcium) 8.7900 mg/dL 8.0000-10.3000 Alkaline Phosphatase (test code = Alkaline 83.0000 42.00 00-141.0000 Phosphatase) ALT (SGPT) (test code = ALT (SGPT)) 17.0000 10.0000-47.0 000 AST (SGOT) (test code = AST (SGOT)) 16.0000 11.0000-37.0 000 Bilirubin, Total (test code = Bilirubin, 0.7000 mg/dL 0.0000- 1.6000 Total) Albumin (test code = Albumin) 4.5000 g/dL 3.5000-5.5000 Protein, Total (test code = Protein, 6.9000 g/dL 6.4000-8.10 00 Total) eGFR -Luxembourger (test code = eGFR 66.0000 60.0000- 200.0000 -Luxembourger) eGFR Qll-Dnakfmb-Kecdrxmy (test code = 55.0000 60.0000-2 00.0000 eGFR Nyu-Vgmktas-Ozvfwsdu) [id number] 16:39:03 Test Item Value Reference Range Comments Glucose (test code = Glucose) 120.0000 mg/dL 60.0000-125.0000 BUN (test code = BUN) 18.0000 mg/dL 5.0000-26.0000 Creatinine (test code = Creatinine) 0.9500 mg/dL 0.5000-1.500 0 Cr Clearance (Est) (test code = Cr 89.3900 75.0000-115.0 000 Clearance (Est)) Sodium (test code = Sodium) 139.0000 mmol/L 135.0000-148.0000 Potassium (test code = Potassium) 3.8000 mmol/L 3.5000-5.5000 Chloride (test code = Chloride) 104.0000 mmol/L 96.0000-109.0000 CO2 (test code = CO2) 24.0000 mmol/L 21.0000-32.0000 Calcium (test code = Calcium) 9.3000 mg/dL 8.5000-10.6000 Protein, Total (test code = Protein, 6.5000 g/dL 6.0000-8.50 00 Total) Albumin (test code = Albumin) 3.9000 g/dL 3.5000-4.8000 Globulin (test code = Globulin) 2.6000 g/dL 2.0000-4.5000 A/G Ratio (test code = A/G Ratio) 1.5000 0.7000-2.0000 Bilirubin, Total (test code = Bilirubin, 0.4000 mg/dL 0.1000- 1.2000 Total) Alkaline Phosphatase (test code = Alkaline 92.0000 55.00 00-165.0000 Phosphatase) AST (SGOT) (test code = AST (SGOT)) 14.0000 0.0000-45.00 00 ALT (SGPT) (test code = ALT (SGPT)) 13.0000 0.0000-50.00 00 Ferritin (test code = Ferritin) 95.0000 ng/mL 10.0000-291.0000 T4, Free (test code = T4, Free) 1.4000 ng/dL 0.7000-1.5300 TSH (test code = TSH) 3.5300 0.3500-5.5000 Vitamin B12 (test code = Vitamin B12) 1183.0000 pg/mL 211.0000-9 11.0000 Folate (test code = Folate) 15.6000 ng/mL 2.7000-999.9000 [id number] 16:39:03 Test Item Value Reference Range Comments WBC (test code = WBC) 9.6000 4.0000-10.5000 HGB (test code = HGB) 14.3000 g/dL 11.5000-15.0000 HCT (test code = HCT) 43.9000 % 34.0000-44.0000 MCV (test code = MCV) 96.1000 fL 80.0000-98.0000 Platelet Count (test code = Platelet Count) 295.0000 140. 0000-415.0000 Neutrophils (Gran) (test code = Neutrophils 6.8000 1.80 00-7.8000 (Gran)) Reticulocyte Count (test code = Reticulocyte 1.8000 % 0.5 000-3.0000 Count) Surgical pathology [id number] 14:16:00Case Report Surgical Pathology Report Case: [id number] Authorizing Provider:Za Shepherd MD Collected: 11/13/2018 1416 Ordering Location: [facility] Received:11/13/[address] [place] [address] Pathologist: Edie Garner MD Specimen:Anus, Anal lesion [facility] Final Diagnosis Anal lesion, biopsy: -High-grade squamous intraepithelial lesion (AIN 3). [facility] Clinical History K62.9 [facility] Gross Description Labeled: Patient name and date of with unique medical record number. Size: 2 pieces, 0.3-0.6 cm. Appearance: [place]st[place] tissue. Block summary: All 1. [facility] Microscopic Description Microscopic examination performed. Deeper levels examined. [facility] EMBEDDED IMAGES [facility] Abdomen Pelvis W [id number] 15:14:46CT Abdomen Pelvis W Contrast (06/07/2018 2:49 PM) Narrative Performed At PROCEDURE:CT ABDOMEN PELVIS W CONTRAST CLINICAL HISTORY:Anal intraepithelial neoplasm. COMPARISON:CT abdomen pelvis from 03/27/2014 TECHNIQUE:0.65 mm serial axial images of the abdomen and pelvis were obtained withIV contrast using multiplanar reconstructions.Automated exposure control adjustment of mA and/orKVp was utilized according to patient size for dose reduction as low as reasonably achievable. FINDINGS: CT ABDOMEN:The heart is normal in size.The lung bases are clear with no consolidation oreffusion.The liver, gallbladder, spleen and pancreas are within normal limits.No hydronephrosis or perinephric fluid is seen.The kidneys and adrenals are grossly normal. The abdominal aortaand IVC are normal in caliber. CT PELVIS:The appendix is absent.Oral contrast is seen throughout the bowel without obstruction.The urinary bladder is distended.Right hip replacement with metal artifact obscures the pelvis.Moderate amount of stool is seen in the rectum.The uterus is retroverted and slightly enlarged.Degenerative changes are seen in the left hip joint. Thereis a small fat-containing umbilical hernia. The anal canal and peroneal region demonstrate moderate thickening extending into the left medial gluteal and perineal region.Area of abnormal tissue measures 5 x 2.5 cm.This could be locally invasive.This is very difficult to assess by CT though. Correlation with exam is suggested.PET scan may even be necessary or high-resolution pelvic MRI for local staging. IMPRESSION: 1.Large perianal/perineal mass in the left at least 5 x 2.5 cm with possible local invasion.Limited assessment of the anorectal region by CT. Staging pe lvic MRI or PET scan may be more sensitive and specific. 2.No evidence of metastatic disease in the abdomen otherwise. Signed (Electronic Signature): 06/07/2018 3:17 PM Signed By:FLORENCE SALAZAR [facility] Procedure Note Interface, Rad Results In - 06/07/2018 3:20 PM EDT PROCEDURE: CT ABDOMEN PELVIS W CONTRAST CLINICAL HISTORY: Anal intraepithelial neoplasm. COMPARISON: CT abdomen pelvisfrom 03/27/2014 TECHNIQUE: 0.65 mm serial axial images of the abdomen and pelvis were obtained with IV contrast using multiplanar reconstructions. Automated exposure control adjustment of mA and/or KVp was utilized according to patient size for dose reduction as low as reasonably achievable. FINDINGS: CT ABDOMEN: The heart is normal in size. The lung bases are clear with no consolidation or effusion. The liver, gallbladder, spleen and pancreas are within normal limits. No hydronephrosis or perinephric fluid is seen. The kidneys and adrenals are grossly normal. The abdominal aorta and IVC are normal in caliber. CT PELVIS: The appendix is absent. Oral contrast is seen throughout the bowel without obstruction. The urinary bladder is distended. Right hip replacement with metal artifact obscures the pelvis. Moderate amount of stool is seen in the rectum. The uterus is retroverted and slightly enlarged. Degenerative changes are seen in the left hip joint. There is a small fat- containing umbilical hernia. The anal canal and peroneal region demonstrate moderate thickening extending into the left medialgluteal and perineal region. Area of abnormal tissue measures 5 x 2.5 cm. This could be locally invasive. This is very difficult to assess by CT though. Correlation with exam is suggested. PET scan mayeven be necessary or high-resolution pelvic MRI for local staging. IMPRESSION: 1. Large perianal/perineal mass in the left at least 5 x 2.5 cm with possible local invasion. Limited assessment of the anorectal region by CT. Staging pelvic MRI or PET scan may be more sensitive and specific. 2. No evidence of metastatic disease in the abdomen otherwise. Signed (Electronic Signature): 06/07/2018 3:17 PM Signed By: FLORENCE SCHNEIDER Performing Organization Address City/State/Zipcode Phone Number [facility] [address] [place], [place] [address] Chest with [id number] 15:00:18CT Chest with contrast (06/07/2018 2:49 PM) Narrative Performed At PROCEDURE:CT CHEST W CONTRAST CLINICAL HISTORY:History of anal intraepithelial neoplasia. Evaluate for metastases. Prior history of substernal thyroid mass. COMPARISON:12/25/2015. TECHNIQUE:0.65 mm serial axial images were obtained with IV contrast using multiplanar reconstructions.Automated exposure control adjustment of mA and/or KVp was utilized according to patient size for dose reduction as low as reasonably achievable. FINDINGS: The heart is normal size. Scattered atherosclerosis in the aortic arch and descending thoracic aorta. Atherosclerosis also present visualized upper abdominal aorta.The aorta is intact with no evidence of dissection or aneurysm. No central pulmonary arterial emboli are seen, however, the study is not tailored to pulmonary angiography. The previously seen retrosternal mass has been resected.The lungs are clear.No focal infiltrates or effusionsare present.There is a tiny 2 mm nodule adjacent to the left major fissure, unchanged from prior, given the lack of ion exchange operator 2 years tiny size, this finding is favored benign. There is an unchanged 2 mm indeterminate micronodule in the right middle lobe adjacent to the minor fissure which is also unchanged. The upper abdomen is partly included in the exam and limited in evaluation.No focalabnormalities are identified.Degenerative changes are present in the spine. No suspicious lytic or blastic lesions. IMPRESSION: 1.No acute thoracic abnormality. 2. There is a tiny 2 mm indeterminate micronodule adjacent to the left major fissure and similar size nodule in the right middle lobe adjacent to the minor fissure, which are unchanged since 2016 and are likely benign. No new lesions. Signed (Electronic Signature): 06/07/2018 3:07 PM Signed By:MAYRA SWARTZ [facility] Procedure Note Interface, Rad Results In - 06/07/2018 3:09 PM EDT PROCEDURE: CT CHEST W CONTRAST CLINICAL HISTORY: History of anal intraepithelial neoplasia. Evaluate for metastases. Prior history of substernal thyroid mass. COMPARISON: 12/25/2015. TECHNIQUE: 0.65 mm serial axial images were obtained with IV contrast using multiplanar reconstructions. Automated exposure control adjustment of mA and/or KVp was utilized according to patient size for dose reduction as low as reasonably achievable. FINDINGS: The heartis normal size. Scattered atherosclerosis in the aortic arch and descending thoracic aorta. Atherosclerosis also present visualized upper abdominal aorta. The aorta is intact with no evidence of dissection or aneurysm. No central pulmonary arterial emboli are seen, however, the study is not tailored to pulmonary angiography. The previously seen retrosternal mass has been resected. The lungs are clear. No focal infiltrates or effusions are present. There is a tiny 2 mm nodule adjacent to the left major fissure, unchanged from prior, given the lack of ion exchange operator 2 years tiny size, this finding is favored benign. There is an unchanged 2 mm indeterminate micronodule in the right middle lobe adjacent to the minor fissure which is also unchanged. The upper abdomen is partly included in the exam and limited in evaluation. No focal abnormalities are identified. Degenerative changes are present in the spine. No suspicious lytic or blastic lesions. IMPRESSION: 1. No acute thoracic abnormality. 2. There is a tiny 2 mm indeterminate micronodule adjacent to the left major fissure and similar size nodule in the right middle lobe adjacent to the minor fissure, which are unchanged since 2016 and are likely benign. No new lesions. Signed (Electronic Signature): 06/07/2018 3:07 PM Signed By: MAYRA SWARTZ [facility] Organization Address City/State/Zipcode Phone Number [facility] [address] [facility] [address] [facility]. [place], [place] [address] Chest with contrast 2018-06-07 15:00:18CT Chest with contrast (06/07/2018 2:49 PM) Narrative Performed At PROCEDURE:CT CHEST W CONTRASTCLINICAL HISTORY:History of anal intraepithelial neoplasia. Evaluate for metastases. Prior history of substernal thyroid mass. COMPARISON:12/25/2015. TECHNIQUE:0.65 mm serial axial images were obtained with IV contrast using multiplanar reconstructions.Automated exposure control adjustment of mA and/or KVp was utilized according to patient size for dose reduction as low as reasonably ach ievable. FINDINGS: The heart is normal size. Scattered atherosclerosis in the aortic arch and descending thoracic aorta. Atherosclerosis also present visualized upper abdominal aorta.The aorta is intact with no evidence of dissection or aneurysm. No central pulmonary arterial emboli are seen, however, the study is not tailored to pulmonary angiography. The previously seen retrosternal mass has been resected.The lungs are clear.No focal infiltrates or effusionsare present.There is a tiny 2 mm nodule adjacent to the left major fissure, unchanged from prior, given the lack of ion exchange operator 2 years tiny size, this finding is favored benign. There is an unchanged 2 mm indeterminate micronodule in the right middle lobe adjacent to the minor fissure which is also unchanged. The upper abdomen is partly included in the exam and limited in evaluation.No focalabnormalities are identified.Degenerative changes are present in the spine. No suspicious lytic or blastic lesions. IMPRESSION: 1.No acute thoracic abnormality. 2. There is a tiny 2 mm indeterminate micronodule adjacent to the left major fissure and similar size nodule in the right middle lobe adjacent to the minor fissure, which are unchanged since 2016 and are likely benign. No new lesions. Signed (Electronic Signature): 06/07/2018 3:07 PM Signed By:MAYRA SWARTZ [facility] Procedure Note Interface, Rad Results In - 06/07/2018 3:09 PM EDT PROCEDURE: CT CHEST W CONTRAST CLINICAL HISTORY: History of anal intraepithelial neoplasia. Evaluate for metastases. Prior history of substernal thyroid mass. COMPARISON: 12/25/2015. TECHNIQUE: 0.65 mm serial axial images were obtained with IV contrast using multiplanar reconstructions. Automated exposure control adjustment of mA and/or KVp was utilized according to patient size for dose reduction as low as reasonably achievable. FINDINGS: The heartis normal size. Scattered atherosclerosis in the aortic arch and descending thoracic aorta. Atherosclerosis also present visualized upper abdominal aorta. The aorta is intact with no evidence of dissection or aneurysm. No central pulmonary arterial emboli are seen, however, the study is not tailored to pulmonary angiography. The previously seen retrosternal mass has been resected. The lungs are clear. No focal infiltrates or effusions are present. There is a tiny 2 mm nodule adjacent to the left major fissure, unchanged from prior, given the lack of ion exchange operator 2 years tiny size, this finding is favored benign. There is an unchanged 2 mm indeterminate micronodule in the right middle lobe adjacent to the minor fissure which is also unchanged. The upper abdomen is partly included in the exam and limited in evaluation. No focal abnormalities are identified. Degenerative changes are present in the spine. No suspicious lytic or blastic lesions. IMPRESSION: 1. No acute thoracic abnormality. 2. There is a tiny 2 mm indeterminate micronodule adjacent to the left major fissure and similar size nodule in the right middle lobe adjacent to the minor fissure, which are unchanged since 2016 and are likely benign. No new lesions. Signed (Electronic Signature): 06/07/2018 3:07 PM Signed By: MAYRA SWARTZ [facility] Organization Address City/State/Zipcode Phone Number [facility] [address] [place], [place] [id number] 13:11:00 Test Item Value Reference Range Comments BUN (test code = BUN) 15 mg/dL 7- 17 mg/dL [id number] 13:11:00 Test Item Value Reference Range Comments Creatinine (test code = Creatinine) 0.80 mg/dL 0.60- 1.00 m g/dL EGFR MDRD Af Amer (test code = EGFR MDRD Af >=60 >=60 mL/min/1.73m2 Amer) EGFR MDRD Non Af Amer (test code = EGFR MDRD >=60 >=6 0 mL/min/1.73m2 Non Af Amer) Surgical pathology [id number] 14:45:00Case Report Surgical Pathology Report Case: [id number] Authorizing Provider:Annika Nair MD Collected: 05/24/2018 1445 [facility] 811 Pathologist: Oneyda Ceja MD Specimen:Perirectal, PERIANAL BIOPSY [facility] Final Diagnosis Anus, excisional biopsy -- high-grade squamous intraepithelial lesion (AIN 3) [facility] Comment [id number] This case was reviewed by Dr. Tim Alva who agrees with the findings and diagnosis as listed above. [facility] Clinical History Pre-op diagnosis: hemorrhoids [facility] Gross Description Specimen 1 "perirectal" Received in a formalin filled container labeled with the patient's name and date of 1945 are two 0.9 x 0.7 x 0.4 similar pieces of stallworth tissue. Both are triisected and totally submitted in block A1. [facility] Microscopic Description Section of the specimen (A1) shows pieces of analstratified squamous epithelium. The squamous epithelium is significant for disorganization and retarded maturation extending from the base to the surfaces. The atypia is characterized by large sized cells with squamous differentiation containing highly pleomorphic nuclei with anisonucleosis and atypical hyperchromatic chromatin. Mitotic activity is brisk through all layers is well. Despite the high-grade features, no definite invasive elements are seen. [facility] EMBEDDEDIMAGES [facility] [id number] 11:27:55ECG 12 Lead (05/18/2018 11:27 AM) Narrative Performed At [facility] Test Date:2018-05-18 Pat Name: REBECCA MAYA Department: Patient ID: [id number] Room: Gender: FTechnician: ELGIN :1945 Requested By: ROBIN DUKE Order Number: [id number] Reading MD: Conor Hernandez Measurements IntervalsAxis Rate: 89 P:46 [place]: 139QRS:52 QRSD: 89 T:39 QT: 379 QTc: 462 Interpretive Statements Sinus rhythm Atrial premature complex [facility] Procedure Note Interface, Rad Results In - 05/18/2018 10:46 PM EDT [facility] Test Date: 2018-05-18 Pat Name: REBECCA MAYA Department: Room: Gender: F Turf Grower: TD : 1945 Requested By: ROBIN DUKE Order Number: [id number] Reading : Conor Hernandez Measurements Intervals [place] Rate: 89 P: 46 [place]: 139 QRS: 52 QRSD: 89 T: 39 QT: 379 QTc: 462 Interpretive Statements Sinus rhythm Atrial premature complex Performing Organization Address City/State/Zip code Phone Number [facility] [address] [facility]. [place], [place] [id number] 2017-07-17 08:46:35COLONOSCOPY (07/17/2017 8:46 AM) Specimen Performing Laboratory [facility] [address] [facility]. [place], [place] Narrative Patient Name: Rebecca Maya Procedure Date: 07/17/2017 8:46 AM Date of : 1945 Admit Type: Outpatient Age: 71 Room: [address] Gender: Female Note Status: Idalmis belle Instrument Name: [id number] Procedure: Colonoscopy Indications: Screening for colorectal malignant neoplasm Providers: ANNIKA NAIR MD Referring MD: Medicines: Propofol per Anesthesia, Sedation Administered by an Anesthesia Professional Complications: No immediate complications. Procedure: Pre-Anesthesia Assessment: - Prior to the procedure, a History and Physical was performed, and patient medications, allergies and sensitivities were reviewed. The patient's tolerance of previous anesthesia was reviewed. - ASA Grade Assessment: III - A patient with severe systemic disease. After obtaining informed consent, the scope was passed under direct vision. Throughout the procedure, the patient's blood pressure, pulse, and oxygen saturations were monitored continuously. The Colonoscope was introduced through the anus and advanced to the the ileocecal valve. The colonoscopy was performed without difficulty. The patienttolerated the procedure well. The quality of the bowel preparation was good. Findings: The perianalexam findings include internal hemorrhoids that prolapse with straining, but spontaneously regress to the resting position (Grade II). Two hyperplastic polyps were found in the rectum and rectum (benign-appearing lesion). The polyps were 10 mm in size. Biopsies were taken with a cold forceps for histology. Estimated blood loss was minimal. The entire examined colon appeared normal. The perianal exam findings include non-thrombosed external hemorrhoids. Moderate Sedation: Moderate (conscious) sedation was personally administered by an anesthesia professional. The following parameters were monitored: oxygen saturation, heart rate, blood pressure,and response to care. Impression:- Internal hemorrhoids that prolapse with straining, but require manual replacement into the anal canal (Grade III) found on perianal exam. - Two benign appearing 10 mm polyps in the rectum and in the rectum. Biopsied. - The entire examined colon is normal. - Mild diverticulosis in the sigmoid colon. There was no evidence of diverticular bleeding. Recommendation:- Discharge patient to home. - Repeat colonoscopy in 10 years for surveillance. - Return to my office in 2 weeks. Procedure Code(s): --- Professional --- 32949, Colonoscopy, flexible; with biopsy, single or multiple DiagnosisCode(s): --- Professional --- Z12.11, Encounter for screening for malignant neoplasm of colon K62.1, Rectal polyp K57.30, Diverticulosis of large intestine without perforation or abscess without bleeding CPT copyright 2016 [employer]. All rights reserved. The codes documented in this report are preliminary and upon clay preparation supervisor review may be revised to meet current compliance requirements. Attending Participation: I personally performed the entire procedure. ANNIKA NAIR MD 07/17/2017 9:32:47 AM Number of Addenda: 0 Note Initiated On: 07/17/2017 8:46 AM Procedure Note Interface, Rad Results In - 07/17/2017 9:33 AM EDT ____ Patient Name: Rebecca Maya Procedure Date: 07/17/2017 8:46 AM Date of : 1945 Admit Type: Outpatient Age: 71 Room: [address] Gender: Female Note Status: Finalized Instrument Name: [id number] ____ Procedure: Colonoscopy Indications: Screening for colorectal malignant neoplasm Providers: ANNIKA NAIR MD Referring MD: Medicines: Propofol per Anesthesia, Sedation Administered by an Anesthesia Professional Complications: No immediate complications. ____ Procedure: Pre-Anesthesia Assessment: - Prior to the procedure, a History and Physical was performed, and patient medications, allergies and sensitivities were reviewed. The patient's tolerance of previous anesthesia was reviewed. - ASA Grade Assessment: III - A patient with severe systemic disease. After obtaining informed consent, the scope was passed under direct vision. Throughout the procedure, the patient's blood pressure, pulse, and oxygen saturations were monitored continuously. The Colonoscope was introduced through the anus and advanced to the the ileocecal valve. The colonoscopy was performed without difficulty. The patient tolerated the procedure well. The quality of the bowel preparation was good. Findings: The perianal exam findings include internal hemorrhoids that prolapse with straining, but spontaneously regress to the resting position (Grade II). Two hyperplastic polyps were found in the rectum and rectum (benign-appearing lesion). The polyps were 10 mm in size. Biopsies were taken with a cold forceps for histology. Estimated blood loss was minimal. The entire examined colon appeared normal. The perianal exam findings include non-thrombosed external hemorrhoids. Moderate Sedation: Moderate (conscious) sedation was personally administered by an anesthesia professional. The fol lowing parameters were monitored: oxygen saturation, heart rate, blood pressure, and response to care. Impression: - Internal hemorrhoids that prolapse with straining, but require manual replacement into the anal canal (Grade III) found on perianal exam. - Two benign appearing 10 mm polyps in the rectum and in the rectum. Biopsied. - The entire examined colon is normal. - Mild diverticulosis in the sigmoid colon. There was no evidence of diverticular bleeding. Recommendation: - Discharge patient to home. - Repeat colonoscopy in 10 years for surveillance. - Return to my office in 2 weeks. Procedure Code(s): --- Professional --- 96447, Colonoscopy, flexible; with biopsy, single or multiple DiagnosisCode(s): --- Professional --- Z12.11, Encounter for screening for malignant neoplasm of colon K62.1,Rectal polyp K57.30, Diverticulosis of large intestine without perforation or abscess without bleeding CPT copyright 2016 [employer]. All rights reserved. The codes documented in this report are preliminary and upon clay preparation supervisor review may be revised to meet current compliance requirements.Attending Participation: I personally performed the entire procedure. ANNIKA NAIR MD 07/17/2017 9:32:47 AM Number of Addenda: 0 Note Initiated On: 07/17/2017 8:46 AMTYPE AND [id number] 08:06:43 Test Item Value Reference Range Comments ABORh (test code = ABORh) O Negative Antibody Screen (test code = Antibody Screen) Negative Advance Directives Directive Decision Effective Date Termination Date Comments Patient has advance directives. For N/A more information, please contact: [address] [address] Encounters Start End Encounter Admission Attending Care Care Encounter Date/Time Date/Time Type Type Clinicians Facility Department ID 2016-04-20 Inpatient [facility] [id number] 00:00:00 [id number] 2020-06-30 Outpatient [facility] [id number] 00:00:00 00:00:00 rn Medical Medical Oncology Oncology [facility] 2020-06-25 2020-06-25 Outpatient [facility] [id number] 00:00:00 00:00:00 rn Medical Medical Oncology Oncology [facility] 2020-05-04 2020-05-04 Outpatient [facility] [id number] 00:00:00 00:00:00 rubi Medical Medical Oncology Oncology [facility] 2020-05-01 2020-05-01 Dr. Desi Weeks, [facility] [id number] 00:00:00 00:00:00 Bárbara Granger rn Medical Medical Oncology [facility] 2020-02-04 2020[facility]02-[id number]:00:00 Brenna Granger rn Medical Medical Oncology [facility] 2020-01-22 2020-01-22 [facility] [id number]:00 00:00:00 Bárbara venegas Medical Medical Oncology [facility] [place] 2019-10-29 2019-10-29 [facility] [id number] 00:00:00 00:00:00 Brenna Granger rn Medical Medical Oncology [facility] [place] 2019-08-07 2019-08-07 Outpatient [facility] [id number] 00:00:00 00:00:00 rn Medical Medical [facility] [place] 2019-08-06 2019-08-06 [id number]:00:00 Lakeshai [place]anger rn [facility] [place] 2019-08-05 2019-08-05 Outpatient [facility] [id number] 00:00:00 00:00:00 rn [facility] [place] 2019-07-25 2019-07-25 Outpatient [facility] [id number] 00:00:00 00:00:00 rn [facility] [place] 2019-07-03 2019-07-03 [facility]. [facility] [place] [id number] 00:00:00 00:00:00 Bárbara [place]anger rn [facility] [place] 2019-06-13 2019-06-13 Outpatient [facility] [id number] 00:00:00 00:00:00 rn [facility] [place] 2019-05-30 2019-05-30 [facility] [id number]00 00:00:00 Bárbara venegas Medical [facility] [place] 2019-05-16 2019-05-16 [facility] [place] [id number] 00:00:00 00:00:00 Bárbara [place] rn [facility] [place] 2019-05-13 2019-05-13 [facility] [id number] 00:[facility]:00 00:00:00 Bárbara venegas [facility] [place] 2019-05-06 2019-05-06 Outpatient Anatoliy Weeks [facility] [id number] 00:00:00 00:00:00 Bárbara venegas [facility] [place] 2019-05-03 2019-05-03 Dr. Desi Anatoliy [facility] [id number] 00:00:00 00:00:00 Bárbara Hernandez rn Medical [facility] [place] 2019-04-30 2019-04-30 Outpatient [facility] [id number] 00:00:00 00:00:00 rn [facility] [place] 2019-04-29 2019-04-29 Jesse, Mrs. Cope [facility] [id number] 00:00:00 00:00:00 Sheila Meade rn Medical Medical [facility] [place] 2019-04-22 2019-04-22 Outpatient [facility] [id number] 00:00:00 00:00:00 rn Medical [facility] [place] 2019-04-15 2019-04-15 Josesevero, Augusto Anatoliy [facility] [id number] 00:00:00 00:00:00 Sheila Meade rn Medical [facility] [place] 2019-04-08 2019-04-08 Outpatient Anatoliy Weeks [facility] [id number] 00:00:00 00:00:00 Bárbara venegas Medical [facility] [place] 2019-04-05 2019-04-05 Josesevero, Anatoliy Cruz [facility] [id number] 00:00:00 00:00:00 Sheila [place] rn [facility] [place] 2019-04-04 2019-04-04 Outpatient Anatoliy Weeks [facility] [id number] 00:00:00 00:00:00 Bárbara venegas Medical [facility] [place] 2019-04-01 2019-04-01 Josesevero, Mrs. Weeks [facility] [id number] 00:00:00 00:00:00 Sheila [place] rn Medical [facility] [place] 2019-03-26 2019-03-26 Outpatient [facility] [id number] 00:00:00 00:00:00 rn Medical [facility] [place] 2019-03-24 2019-03-24 Outpatient [facility] [id number] 00:00:00 00:00:00 rn Medical [facility] [place] 2019-03-19 2019-03-19 Outpatient [facility] [id number] 00:00:00 00:00:00 rn [facility] [place] 2019-03-14 2019-03-14 [facility] [id number] 00:[facility]:00 00:00:00 Bárbara venegas Medical [facility] [place] 2019-03-12 2019-03-12 [facility] [place] [id number] 00:00:00 00:00:00 Cassidy [place] rn [facility] Medical [facility]cology [facility] [place] 2019-02-21 2019-02-21 [facility] [id number] 00:00:00 00:00:00 Bárbara venegas Medical [facility] [place] 2019-02-06 2019-02-06 [facility]. [facility] [place] [id number] 00:00:00 00:00:00 Bárbara [place] rn [facility] Medical [facility] [place] 2019-01-29 2019-01-29 Outpatient [facility] [id number] 00:00:00 00:00:00 rn [facility] Medical Oncology Oncology [facility] 2019-01-25 2019-01-25 Outpatient [facility] [id number]_ 15:46:46 15:47:11 [id number] 2019-01-24 2019-01-24 Outpatient [facility] [id number] 00:00:00 00:00:00 rn [facility] Oncology Oncology [facility] 2019-01-18 2019-01-18 Outpatient [facility] [id number] 00:00:00 00:00:00 [id number] 2019-01-18 Outpatient [facility] [id number] 00:00:00 00:00:00 [id number] 2019-01-18 Outpatient [facility] [id number] 00:00:00 00:00:00 rn Medical [facility] [place] 2019-01-18 2019-01-18 Outpatient [facility] [id number] 00:00:00 00:00:00 2019-01-02 2019-01-02 Outpatient [facility] [id number] 00:00:00 00:00:00 2018-11-13 2018-11-13 Outpatient [facility] [id number] 12:07:13 14:00:00 2018-11-13 2018-11-13 Outpatient [facility] [id number] 12:07:13 14:00:00 [id number] 2018-11-13 2018-11-13 Outpatient [facility] [id number] 00:00:00 00:00:00 [id number] 2018-11-13 Outpatient [facility] [id number] 00:00:00 00:00:00 rn [facility] [place] 2018-11-06 2018-11-06 Outpatient [facility] [id number] 00:00:00 00:00:00 [id number] 2018-10-23 Outpatient [facility] [id number] 00:00:00 00:00:00 [id number] 2018-10-18 2018-10-18 Outpatient Pittard, [facility] R[facility] [id number] 00:00:00 00:00:00 Fernando 2018-10-18 2018-10-18 Outpatient Pittard, [facility] [id number] 00:00:00 00:00:00 Fernando 2018-10-11 2018-10-11 Outpatient Pittard, [facility] R[facility] [id number] 00:00:00 00:00:00 Fernando 2018-10-11 2018-10-11 Outpatient Pittard, [facility] R[facility] [id number] 00:00:00 00:00:00 Fernando 2018-10-11 2018-10-11 Outpatient Pittard, [facility] R[facility] [id number] 00:00:00 00:00:00 Fernando 2018-08-14 2018-08-14 Outpatient [facility] [id number]_ 12:35:07 13:29:41 [id number] 2018-08-14 2018-08-14 Outpatient [facility] [id number]_ 00:00:00 00:00:00 [id number] 2018-08-14 Outpatient [facility] [id number] 00:00:00 00:00:00 rubi Medical [facility] [place] 2018-07-10 2018-07-10 Outpatient [facility] [id number]_ 14:30:17 15:46:08 [id number] 2018-07-10 2018-07-10 Outpatient [facility] [id number] 14:30:17 15:46:08 2018-07-10 2018-07-10 Outpatient [facility] [id number]_ 00:00:00 00:00:00 [id number] 2018-06-27 2018-06-27 S EL ALTOM, [facility] [id number] _ 08:27:00 15:15:00 ZA [id number] 2018-06-27 2018-06-27 S EL ALTOM, [facility] [id number] _ 11:20:00 11:20:00 ZA [id number] 000 2018-06-27 2018-06-27 S EL ALTOM, [facility] [id number] _ 10:45:00 10:45:00 ZA [id number] 500 2018-06-27 2018-06-27 S ALTOM, [facility] [id number] _ 10:15:00 10:15:00 ZA [id number] 500 2018-06-27 2018-06-27 S ALTOM, [facility] [id number] _ 09:50:00 09:50:00 ZA [id number] 000 2018-06-272018-06-27 S EL ALTOM, [facility] [id number] _ 09:45:00 09:45:00 ZA [id number] 500 2018-06-27 2018-06-27 S [facility] [id number] _ 00:00:00 00:00:00 [id number] 2018-06-21 2018-06-21 Outpatient [facility] [id number]_ 12:19:51 23:59:00 [id number] 2018-06-21 2018-06-21 Outpatient [facility] [id number]_ 00:00:00 00:00:00 [id number] 2018-06-21 S [facility] [id number] 00:00:00 00:00:00 [id number] 2018-06-19 Outpatient [facility] [id number] 00:00:00 00:00:00 2018-06-14 2018-06-14 Outpatient [facility] [id number]_ 13:45:03 15:10:48 [id number] 2018-06-14 2018-06-14 Outpatient [facility] [id number] 13:45:03 15:10:48 2018-06-14 2018-06-14 Outpatient EL [facility] CARY [id number]_ 00:00:00 00:00:00 [id number] 2018-06-14 Outpatient [facility] [id number] 00:00:00 00:00:00 2018-06-14 2018-06-14 Outpatient [facility] [id number] 00:00:00 00:00:00 2018-06-07 2018-06-07 Outpatient EL [facility] CARMONA [id number]_ 12:58:32 23:59:00 [id number] 2018-06-07 2018-06-07 Outpatient ANNIKA VACA [id number] 12:57:37 23:59:00 [id number] 2018-06-07 2018-06-07 Outpatient [facility] BLAIR [id number] 12:57:37 23:59:00 2018-06-07 2018-06-07 Outpatient ANNIKA VACA [id number] 00:00:00 00:00:00 [id number] 2018-06-05 Outpatient EL [facility] CARMONA [id number] 14:31:05 16:20:33 [id number] 2018-06-05 2018-06-05 Outpatient [facility] B[facility]IR [id number] 14:31:05 16:20:33 2018-06-05 2018-06-05 Outpatient [facility] [id number] 09:54:47 11:04:49 2018-06-05 2018-06-05 Outpatient EL [facility] CARMONA [id number] 00:00:00 00:00:00 [id number] 2018-06-05 Outpatient [facility] [id number] 00:00:00 00:00:00 2018-05-30 2018-05-30 Outpatient [facility] [id number] 00:00:00 00:00:00 2018-05-29 2018-05-29 Outpatient [facility] [id number] 00:00:00 00:00:00 2018-05-29 2018-05-29 Outpatient [facility] PINTO [id number] 00:00:00 00:00:00 2018-05-24 2018-05-24 S ANNIKA VACA [id number]_ 11:32:00 17:20:00 [id number] 2018-05-24 2018-05-24 Outpatient [facility] [id number] 11:32:00 17:20:00 2018-05-24 2018-05-24 S ANNIKA VACA [id number] 14:15:00 14:15:00 [id number] 2018-05-24 2018-05-24 S BLAIR CARMONA [id number]_ 00:00:00 00:00:00 [id number] 2018-05-18 2018-05-18 Outpatient EL BLAIR CARMONA [id number]_ 11:15:47 23:59:00 [id number] 2018-05-18 2018-05-18 Outpatient EL BLAIR CARMONA [id number] 00:00:00 00:00:00 [id number] 2018-05-16 2018-05-16 Outpatient [facility] PINTO [id number] 13:57:16 14:50:38 2018-05-16 2018-05-16 Outpatient [facility] [id number] 00:00:00 00:00:00 2018-05-01 2018-05-01 Outpatient Pittard, [facility] R[facility] [id number] 00:00:00 00:00:00 Fernando 2018-05-01 2018-05-01 Outpatient Pittard, [facility] [id number] 00:00:00 00:00:00 Fernando 2017-07-17 2017-07-17 S DIOR WASHBURNBLAIR [id number]_ 07:48:00 10:02:00 LEIF [id number] 2017-07-17 2017-07-17 Outpatient [facility] PINTO [id number] 07:48:00 10:02:00 2017-07-17 2017-07-17 S DIOR WASHBURNBLAIR [id number]_ 09:00:00 09:00:00 LEIF [id number] 2017-07-17 2017-07-17 S BLAIR CARMONA [id number] 00:00:00 00:00:00 [id number] 2017-07-11 2017-07-11 Outpatient BLAIR CARMONA [id number]_ 00:00:00 23:59:00 [id number] 2016-08-15 2016-08-15 [facility] [id number] 00:00:00 00:00:00 Fernando 2016-05-27 2016-05-27 Outpatient EL DOMINICK PINTO LU[facility] DANIEL [id number] 10:23:48 11:19:34 , DERRICK [id number] 2016-05-27 2016-05-27 Outpatient EL DOMINICK PINTO [facility] D[facility] [id number] 00:00:00 00:00:00 , DERRICK [id number] 2016-05-26 2016-05-26 Outpatient BLAIR ELDRIDGE [id number]_ 13:45:41 23:59:00 RJ [id number] 2016-05-12 2016-05-12 X DIOR SUZE, BETH PINTO [facility] [id number]_ 05:28:00 17:50:00 [id number] 2016-05-12 2016-05-12 Outpatient BLAIR PINTO [id number] 05:28:00 17:50:00 2016-05-12 2016-05-12 A BETH JOHNSON BLAIR [facility] D[facility]EL [id number]_ 08:00:00 08:00:00 [id number] 2016-05-12 2016-05-12 A BETH JOHNSON BLAIR [facility] [id number]_ 06:10:00 06:10:00 [id number] 2016-04-20 2016-04-20 A BETH JOHNSON BLAIR [facility] [id number]_ 07:15:00 07:15:00 [id number] 2016-04-12 2016-04-12 Outpatient DIOR SUZE BETH BLAIR [facility] [id number] 14:06:58 23:59:00 [id number] 2016-04-12 2016-04-12 Outpatient DIOR KRYSTAL ARCINIEGAIona PINTO [facility]EL [id number] 15:33:33 16:00:43 [id number] 2016-04-12 2016-04-12 Outpatient BETH JOHNSON [facility] [id number] 00:00:00 00:00:00 [id number] 2016-04-08 Outpatient DIOR PINTO [facility] [id number] 00:00:00 00:00:00 [id number] 2016-02-09 Outpatient BETH JOHNSON [facility] [id number] 09:31:40 10:39:35 [id number] 2016-02-09 2016-02-09 Outpatient DIOR PINTO [facility] [id number]_ 00:00:00 00:00:00 [id number] Payers Payer Name Policy Type Policy Number Effective Date Expiration D ate MEDICARE PART A AND [id number] 2011 00:00:00 PART B [employer] [id number] PLAN GENERIC Plan of Treatment Planned Activity Planned Date Details Comments Future Scheduled Test [code = ] Future Scheduled Test [code = ] Future Scheduled Test [code = ] Future Scheduled Test [code = ] Future Scheduled Test [code = ] Future Scheduled Test [code = ] Future Scheduled Test [code = ] Future Scheduled Test [code = ] Future Scheduled Test [code = ] Future Scheduled Test [code = ] Future Scheduled Test [code = ] Future Scheduled Test [code = ] Future Scheduled Test [code = ] Future Scheduled Test [code = ] Social History Social Habit Start Date Stop Date Comments Alcohol intake Tobacco smoking status NHIS 2018-11-13 00:00:00 2018-11-13 00:00 :00 Tobacco Comment 2016-05-26 00:00:00 2016-05-26 00:00:00 ASSERTION 2016-02-25 00:00:00 2016-02-25 00:00:00 Smoking Status Start Date Stop Date Never 2020-05-01 00:00:00 Social History Observation Description Sex Female Vital Signs Vital Name Observation Time Observation Value Comments BMI 2020-05-01 15:12:54 37.2500 BP amanda 2020-05-01 15:12:54 56.0000 mm[Hg] Bdy height 2020-05-01 15:12:54 66.0000 [in_i] Heart rate 2020-05-01 15:12:54 100.0000 /min Resp rate 2020-05-01 15:12:54 16.0000 /min BP sys 2020-05-01 15:12:54 133.0000 mm[Hg] Body temperature 2020-05-01 15:12:54 97.9000 [degF] Weight 2020-05-01 15:12:54 230.8000 [lb_av] BMI 2019-10-29 09:22:44 36.0300 BP amanda 2019-10-29 09:22:44 57.0000 mm[Hg] Bdy height 2019-10-29 09:22:44 66.0000 [in_i] Heart rate 2019-10-29 09:22:44 79.0000 /min Resp rate 2019-10-29 09:22:44 18.0000 /min BP sys 2019-10-29 09:22:44 96.0000 mm[Hg] Body temperature 2019-10-29 09:22:44 96.4000 [degF] Weight 2019-10-29 09:22:44 223.2000 [lb_av] BMI 2019-08-06 10:04:16 36.1200 BP amanda 2019-08-06 10:04:16 50.0000 mm[Hg] Bdy height 2019-08-06 10:04:16 66.0000 [in_i] SaO2% BldA PulseOx 2019-08-06 10:04:16 98.0000 % Heart rate 2019-08-06 10:04:16 64.0000 /min Resp rate 2019-08-06 10:04:16 16.0000 /min BP sys 2019-08-06 10:04:16 102.0000 mm[Hg] Body temperature 2019-08-06 10:04:16 97.2000 [degF] Weight 2019-08-06 10:04:16 223.8000 [lb_av] BMI 2019-07-03 11:39:38 36.5100 BP amanda 2019-07-03 11:39:38 66.0000 mm[Hg] Bdy height 2019-07-03 11:39:38 66.0000 [in_i] SaO2% BldA PulseOx 2019-07-03 11:39:38 97.0000 % Heart rate 2019-07-03 11:39:38 81.0000 /min Resp rate 2019-07-03 11:39:38 18.0000 /min BP sys 2019-07-03 11:39:38 141.0000 mm[Hg] Body temperature 2019-07-03 11:39:38 97.1000 [degF] Weight 2019-07-03 11:39:38 226.2000 [lb_av] BMI 2019-05-16 10:06:59 36.1200 BP amanda 2019-05-16 10:06:59 53.0000 mm[Hg] Bdy height 2019-05-16 10:06:59 66.0000 [in_i] SaO2% BldA PulseOx 2019-05-16 10:06:59 98.0000 % Heart rate 2019-05-16 10:06:59 80.0000 /min Resp rate 2019-05-16 10:06:59 18.0000 /min BP sys 2019-05-16 10:06:59 122.0000 mm[Hg] Body temperature 2019-05-16 10:06:59 98.6000 [degF] Weight 2019-05-16 10:06:59 223.8000 [lb_av] BMI 2019-04-29 11:06:54 36.9900 BP amanda 2019-04-29 11:06:54 54.0000 mm[Hg] Bdy height 2019-04-29 11:06:54 66.0000 [in_i] SaO2% BldA PulseOx 2019-04-29 11:06:54 97.0000 % Heart rate 2019-04-29 11:06:54 72.0000 /min Resp rate 2019-04-29 11:06:54 18.0000 /min BP sys 2019-04-29 11:06:54 117.0000 mm[Hg] Body temperature 2019-04-29 11:06:54 97.9000 [degF] Weight 2019-04-29 11:06:54 229.2000 [lb_av] BMI 2019-04-15 13:43:04 37.7400 BP amanda 2019-04-15 13:43:04 58.0000 mm[Hg] Bdy height 2019-04-15 13:43:04 66.0000 [in_i] SaO2% BldA PulseOx 2019-04-15 13:43:04 98.0000 % Heart rate 2019-04-15 13:43:04 81.0000 /min Resp rate 2019-04-15 13:43:04 18.0000 /min BP sys 2019-04-15 13:43:04 100.0000 mm[Hg] Body temperature 2019-04-15 13:43:04 98.8000 [degF] Weight 2019-04-15 13:43:04 233.8000 [lb_av] Heart rate 2019-04-01 11:40:48 95.0000 /min Resp rate 2019-04-01 11:40:48 18.0000 /min BP sys 2019-04-01 11:40:48 108.0000 mm[Hg] Body temperature 2019-04-01 11:40:48 98.0000 [degF] Weight 2019-04-01 11:40:48 236.4000 [lb_av] BMI 2019-04-01 11:40:48 38.1600 BP amanda 2019-04-01 11:40:48 44.0000 mm[Hg] Bdy height 2019-04-01 11:40:48 66.0000 [in_i] BMI 2019-03-12 16:00:30 38.0900 BP amanda 2019-03-12 16:00:30 61.0000 mm[Hg] Bdy height 2019-03-12 16:00:30 66.0000 [in_i] SaO2% BldA PulseOx 2019-03-12 16:00:30 98.0000 % Heart rate 2019-03-12 16:00:30 76.0000 /min Resp rate 2019-03-12 16:00:30 16.0000 /min BP sys 2019-03-12 16:00:30 114.0000 mm[Hg] Body temperature 2019-03-12 16:00:30 98.6000 [degF] Weight 2019-03-12 16:00:30 236.0000 [lb_av] BMI 2019-02-06 11:47:37 37.6400 BP amanda 2019-02-06 11:47:37 62.0000 mm[Hg] Bdy height 2019-02-06 11:47:37 66.0000 [in_i] Heart rate 2019-02-06 11:47:37 88.0000 /min Resp rate 2019-02-06 11:47:37 18.0000 /min BP sys 2019-02-06 11:47:37 142.0000 mm[Hg] Body temperature 2019-02-06 11:47:37 98.8000 [degF] Weight 2019-02-06 11:47:37 233.2000 [lb_av] SYSTOLIC BLOOD PRESSURE 2018-11-13 13:18:00 135 mm[Hg] DIASTOLIC BLOOD PRESSURE 2018-11-13 13:18:00 54 mm[Hg] HEART RATE 2018-11-13 13:18:00 79 /min HEIGHT 2018-11-13 13:18:00 160 cm WEIGHT 2018-11-13 13:18:00 105.235 kg SYSTOLIC BLOOD PRESSURE 2018-07-10 15:08:00 124 mm[Hg] DIASTOLIC BLOOD PRESSURE 2018-07-10 15:08:00 57 mm[Hg] HEART RATE 2018-07-10 15:08:00 81 /min HEIGHT 2018-07-10 15:08:00 160 cm WEIGHT 2018-07-10 15:08:00 102.2 kg SYSTOLIC BLOOD PRESSURE 2018-06-14 14:16:00 120 mm[Hg] DIASTOLIC BLOOD PRESSURE 2018-06-14 14:16:00 51 mm[Hg] HEART RATE 2018-06-14 14:16:00 77 /min HEIGHT 2018-06-14 14:16:00 160 cm WEIGHT 2018-06-14 14:16:00 103 kg SYSTOLIC BLOOD PRESSURE 2018-06-05 14:55:00 142 mm[Hg] DIASTOLIC BLOOD PRESSURE 2018-06-05 14:55:00 60 mm[Hg] HEART RATE 2018-06-05 14:55:00 93 /min BODY TEMPERATURE 2018-06-05 14:55:00 36.5 Nela RESPIRATORY RATE 2018-06-05 14:55:00 16 /min WEIGHT 2018-06-05 14:55:00 103.021 kg SYSTOLIC BLOOD PRESSURE 2018-06-05 10:04:00 146 mm[Hg] DIASTOLIC BLOOD PRESSURE 2018-06-05 10:04:00 64 mm[Hg] HEART RATE 2018-06-05 10:04:00 94 /min RESPIRATORY RATE 2018-06-05 10:04:00 22 /min HEIGHT 2018-06-05 10:04:00 160 cm WEIGHT 2018-06-05 10:04:00 105.235 kg OXYGEN SATURATION 2018-06-05 10:04:00 97 % SYSTOLIC BLOOD PRESSURE 2018-05-24 16:29:00 146 mm[Hg] DIASTOLIC BLOOD PRESSURE 2018-05-24 16:29:00 57 mm[Hg] HEART RATE 2018-05-24 16:29:00 89 /min RESPIRATORY RATE 2018-05-24 16:29:00 17 /min OXYGEN SATURATION 2018-05-24 16:29:00 96 % BODY TEMPERATURE 2018-05-24 15:02:00 36.5 Nela SYSTOLIC BLOOD PRESSURE 2018-05-16 13:57:00 135 mm[Hg] DIASTOLIC BLOOD PRESSURE 2018-05-16 13:57:00 47 mm[Hg] HEART RATE 2018-05-16 13:57:00 90 /min HEIGHT 2018-05-16 13:57:00 160 cm WEIGHT 2018-05-16 13:57:00 107.049 kg SYSTOLIC BLOOD PRESSURE 2017-07-17 09:41:00 169 mm[Hg] DIASTOLIC BLOOD PRESSURE 2017-07-17 09:41:00 84 mm[Hg] HEART RATE 2017-07-17 09:41:00 71 /min RESPIRATORY RATE 2017-07-17 09:41:00 18 /min OXYGEN SATURATION 2017-07-17 09:41:00 92 % BODY TEMPERATURE 2017-07-17 08:09:00 36.61 Nela HEIGHT 2017-07-17 08:09:00 160 cm WEIGHT 2017-07-17 08:09:00 108.863 kg SYSTOLIC BLOOD PRESSURE 2016-05-12 16:45:00 141 mm[Hg] DIASTOLIC BLOOD PRESSURE 2016-05-12 16:45:00 60 mm[Hg] HEART RATE 2016-05-12 16:45:00 81 /min BODY TEMPERATURE 2016-05-12 16:45:00 36.89 Nela RESPIRATORY RATE 2016-05-12 16:45:00 16 /min OXYGEN SATURATION 2016-05-12 16:45:00 98 % HEIGHT 2016-05-12 05:53:00 160 cm WEIGHT 2016-05-12 05:53:00 109.9 kg
== END ==
LOC: RAD 08:24
PROVIDERS: ATTEND Nurse Practitioner Family
DX: C21.0 Malignant neoplasm of anus, unspecified (principal); R91.8 Other nonspecific abnormal finding of lung field
CPT/HCPCS: 71260; 74177; 82565

== ENCOUNTER 2020-09-17 09:01 | Day surgery (SDC) | payer MEDICARE, OTHER ==
[2020-09-14 10:52] LABS: HEMOGLOBIN 13.1 g/dL (12.0-15.5); MEAN CORPUSCULAR HEMOGLOBIN 31.3 pg (27.0-33.4); MEAN CORPUSCULAR HGB CONC 34.6 g/dL (32.0-36.0); MEAN CORPUSCULAR VOLUME 91 fl (80-97); PLATELET COUNT 211 10^3/uL (150-450); RED CELL DISTRIBUTION WIDTH 13.9 % (11.5-14.0); WHITE BLOOD COUNT 6.4 10^3/uL (4.0-10.5)
[2020-09-14 11:28] LABS: ANION GAP 11 (5-19); BLOOD UREA NITROGEN 18 mg/dL (7-20); CALCIUM 9.5 mg/dL (8.4-10.2); CARBON DIOXIDE 25 mmol/L (22-30); CHLORIDE 104 mmol/L (98-107); POTASSIUM 4.2 mmol/L (3.6-5.0)
[2020-09-14 11:30] LABS: GLUCOSE 107 mg/dL (75-110)
--- NOTE | 2020-09-14 12:42 | EKG REPORT ---
SEVERITY:- NORMAL ECG - SINUS RHYTHM : Confirmed by: David Aguirre MD 14-Sep-2020 12:41:51
[2020-09-14 14:56] LABS: ABSOLUTE LYMPHOCYTES# (MANUAL) 0.7 10^3/uL (0.5-4.7); ABSOLUTE MONOCYTES # (MANUAL) 0.4 10^3/uL (0.1-1.4); BAND NEUTROPHILS % (MANUAL) 1 % (3-5); BASOPHILS % (MANUAL) 2 % (0-2); EOSINOPHILS % (MANUAL) 3 % (0-6); LYMPHOCYTES % (MANUAL) 10 % (13-45); MONOCYTES % (MANUAL) 6 % (3-13); SEGMENTED NEUTROPHILS % (MAN) 77 % (42-78); TOTAL CELLS COUNTED 100
[2020-09-14 14:57] LABS: PLATELET COMMENT ADEQUATE; RBC MORPHOLOGY COMMENT NORMO-CYTIC/CHROMIC
[~2020-09-17 09:01] MED LIST changes: +ACETAMINOPHEN 325 MG TABLET PO PRN; +PROPOFOL INJ 200 MG/20 ML VIAL IV ONE
--- NOTE | 2020-09-17 12:00 | Operative Report ---
Nonrecallable Operative Report DATE OF SURGERY: 09/17/20 PREOPERATIVE DIAGNOSIS: hx of anal cancer POSTOPERATIVE DIAGNOSIS: same OPERATION: colonoscopy SURGEON: DUTCH CONROY ANESTHESIA: GA TISSUE REMOVED OR ALTERED: none COMPLICATIONS: none ESTIMATED BLOOD LOSS: 0 INTRAOPERATIVE FINDINGS: see note PROCEDURE: Patient was brought to the operating awake alert in stable condition placed on the operating table in supine position in the left lateral decubitus position. She is given IV sedation for the procedure. The Olympus colonoscope was passed easily into the rectum after digital examination revealed no evidence of anal masses. The scope was then advanced through the rectum into the sigmoid colon which showed evidence of diverticulosis descending colon transverse colon ascending colon all appear to be normal without evidence of any mucosal abnormalities. Cecum was visualized and also appeared to be normal. The scope was then slowly withdrawn a reexamination of the ascending transverse colon splenic flexure hepatic flexure descending colon all appeared to be normal without evidence of pathology. The scope was then slowly withdrawn and attempt on retroflexion of the scope revealed grade 2 hemorrhoids but no evidence of rectal masses or mucosal abnormalities. The scope was then slowly withdrawn. Impression grade 2 hemorrhoids 2 sigmoid diverticulosis. 3 no evidence of recurrent anal cancer. Patient tolerated procedure well with required Next colonoscopy in 1 to 2 years.
--- NOTE | 2020-09-17 12:01 | Discharge Summary ---
Discharge Summary (SDC) - Discharge Final Diagnosis: History of anal cancer Date of Surgery: 09/17/20 Condition: Good Referrals: HALEY CUNHA MD [Primary Care Provider] - Discharge Diet: As Tolerated Discharge Activity: Activity As Tolerated Report the Following to Your Physician Immediately: Increase in Pain
[2020-09-17 14:21] VITALS: BP 146/62
== END 2020-09-17 12:50 | disposition home or self-care (01) ==
LOC: OROUT 09:01
PROVIDERS: ATTEND Surgery
DX: K57.30 Diverticulosis of large intestine without perforation or abscess without bleeding (principal); K64.1 Second degree hemorrhoids; I10 Essential (primary) hypertension; E78.00 Pure hypercholesterolemia, unspecified; E07.9 Disorder of thyroid, unspecified; Z85.048 Personal history of other malignant neoplasm of rectum, rectosigmoid junction, and anus; Z85.828 Personal history of other malignant neoplasm of skin; Z95.828 Presence of other vascular implants and grafts; Z98.890 Other specified postprocedural states; Z01.812 Encounter for preprocedural laboratory examination; Z20.828 Contact with and (suspected) exposure to other viral communicable diseases; Z79.899 Other long term (current) drug therapy; Z92.21 Personal history of antineoplastic chemotherapy; Z79.890 Hormone replacement therapy
CPT/HCPCS: 93005; 36415; 85025; 80048; 93010; 45378; U0003; J2704; C9803; 87635